=== PATIENT | female | born 1940 | race Caucasian/White ===

== ENCOUNTER 2024-08-18 08:58 | Emergency (ER) | payer MEDICARE, BC, SELFPAY ==
[2024-08-18 09:06] VITALS: BP 172/118; PULSE 72; RESP 16; TEMP 36.6; O2SAT 97; BMI 23.6
--- OUTSIDE RECORDS SUMMARY | 2024-08-18 09:11 | XMS_ITS | Clinical Summary ---
Author Organization [facility] Address [address] [place] [address] Care Team Providers Care Volleyball Player Name Role Phone Elsewhere, Pcp Primary Care Provider Unavailabl e Source Comments Patient records contain information from all sites at [facility]. For routine questions regarding patient records, call [phone] during business hours, M-F 8:00 AM - 5:00 PM Central Time. Record requests for emergency care only can be directed to [phone] at any time.[facility] Allergies Active Allergy Reactions Criticality Noted Date Comments Nitrofurantoin Other (see comments) Medium 11/13/2022 Fatigue and generalized weakness Medications * This document contains information received from the source organization and may not represent a complete record from that organization. aspirin [address] tablet Take 1 tablet by mouth daily. 5 Active gemfibrozil (LOPID) 600 mg tablet Take 1 tablet by mouth 2 (two) times a day. 5 Active ibuprofen (ADVIL,MOTRIN) 200 mg tablet Take 400 mg by mouth as needed. Pain 7 Active simvastatin (ZOCOR) 20 mg tablet Take 1 tablet by mouth daily. 5 Active triamcinolone (KENALOG) 0.1 % cream Apply topically 2 (two) times a day as needed. 7 Active metoprolol succinate (TOPROL-XL) 100 mg 24 hr tablet Take 100 mg by mouth daily. 8 Active warfarin (COUMADIN) 4 mg tablet Take by mouth. 4 mg everyday 0 Active omeprazole (PriLOSEC) [address] capsule Take 20 mg by mouth daily. 0 Active cyanocobalamin (VITAMIN B12) 1,000 mcg tablet Take 1,000 mcg by mouth daily. 1 Active losartan (COZAAR) 50 mg tablet Take 50 mg by mouth daily. 1 Active cranberry 500 mg capsule Take 1 capsule by mouth every other day. 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 Detachment Vitreous Posterior Left (Primary Dx); Intraocular Lens Implant Status Post 06/07/2024 Clinical Communication Department of Ophthalmology in [place], [place] [address] [place] [phone] Janiya Mills M.D. 06/05/2024 1:30 PM CDT Comprehensive Visit Department of Ophthalmology in [place], [place] [address] [place] [phone] Janiya Mills M.D. Detachment Vitreous Posterior Left (Primary Dx); Intraocular Lens Implant Status Post 06/05/2024 9:20 AM CDT - 06/05/2024 12:12 PM CDT Emergency [facility] Emergency Department [address] [place] [phone] Rosa Bernardo, EZEQUIEL, C.N.P., D.N.P., M.S.N. Blurred Vision (Primary Dx) Discharge Disposition: Home or Self Care from Last 3 Months Immunizations Immunization Administration Dates Next Due PCV13 08/20/2016 PPSV23 12/22/2006 Td Preservative Free (TENIVAC, DECAVAC) 03/22/19 04 Tdap 03/16/2014 influenza trivalent high dose (HD)(PF) 5 Family History Medical History Relation Name Comments Diabetes Brother Diabetes Sister Relation Name Status Comments Brother Sister Social History Tobacco Use Types Packs/Day Years Used Date Smoking Tobacco: Former Cigarettes Q uit: 10/12/1979 Smokeless Tobacco: Never Tobacco Cessation:Counseling Given: Not Answered Comments Unknown Sex and Gender Information Value Date Recorded Sex Assigned at Female 01/11/2018 10:16 AM SURTASS ANALYST Legal Sex Female 1:23 AM SURTASS ANALYST Gender Identity Female 01/11/2018 10:16 AM SURTASS ANALYST Sexual Orientation Straight 01/11/2018 10 :16 AM SURTASS ANALYST Last Filed Vital Signs Vital Sign Reading Time Taken Comments Blood Pressure 139/87 06/05/2024 12:00 PM CDT Pulse 66 06/05/2024 12:00 PM CDT Temperature 36.5 C (97.7 F) 06/05/2024 9:26 AM CDT Respiratory Rate 18 06/05/2024 12:00 PM CDT Oxygen Saturation 98% 06/05/2024 12:00 PM CDT Inhaled Oxygen Concentration - - Weight 73.2 kg (161 lb 6 oz) 06/05/2024 9:44 AM CDT Height 170.2 cm (5' 7 ) 06/05/2024 9:44 AM CDT Body Mass Index 25.28 06/05/2024 9:44 AM CDT Plan of Treatment Health Maintenance Due Date Last Done Comments RSV vaccine - (32-36 weeks) or 60+ years (1 - 1-dose 75+ series) 2016 COVID-19 Vaccine ( - season) 2023 05/08/2020, 04/17/2020 Depression Screening (Annual PHQ-2) 02/16/2024 Fall Risk Screen (Annual) 02/16/2024 DTaP,Tdap,and Td Vaccines (2 - Td or Tdap) 03/16/2024 03/16/2014, 03/22/2003 Influenza Vaccine (#1) 2024 , 12/25/2022, 12/18/2021, Additional history exists Office Visit for Blood Pressure Check / Re-check 03/20/2025 03/20/2024 Creatinine Level (Kidney Function Test) 06/09/2025 06/09/2024, 06/05/2024, 03/20/2024, Additional history exists Potassium Level 06/09/2025 06/09/2024, 04/2 02/2024, 12/24/2023, Additional history exists Sodium Level 06/09/2025 06/09/2024, 042 02/2024, 12/24/2023, Additional history exists Pneumococcal vaccine (50+ years) Completed 08/20/2016, 05/27/2015, 12/22/2006 Zoster Vaccines Completed 06/22/2023, 04/22/2023 IPV Vaccines Aged Out No longer eligi ble based on patient's age to complete this topic Medical Devices Implanted Type Area [employer] Attendant Device Identifier Shelf Expiration Date Model / Serial / Lot Graft Hemagard 16x8mm X 50cmknit Bif. - Dunn [id number] Implanted:Qty: 1 on 10/15/2016 Vascular Graft Other/Legacy - See Implant Description [employer] Description:Device Manufactu rer - [employer]. Body Location - Other. Vascular. Device Status Text - [id number]. Procedures Procedure Name Priority Date/Time Associated Diagnosis Comments CT HEAD NECK ANGIOGRAM WITH IV CONTRAST RAD - Semiurgent (Fast; most ED patients; some inpatients) 06/05/2024 10:[address] HEAD WITHOUT IV CONTRAST RAD - Semiurgent (Fast; most ED patients; some inpatients) 06/05/2024 10:29 AM CDT SEDIMENTATION RATE, B STAT 06/05/2024 9:56 AM CDT PROTHROMBIN TIME (PT), P STAT 06/05/2024 9:56 AM CDT C-REACTIVE PROTEIN (CRP), S/P STAT 06/05/2024 9:56 AM CDT CBC WITH DIFFERENTIAL, B STAT 06/05/2024 9:56 AM CDT BASIC METABOLIC PANEL, S/P STAT 06/05/2024 9:56 AM CDT ECG STAT 06/05/2024 9:54 AM CDT from Last 3 Months Results * CT Head without IV Contrast (06/05/2024 10:29 AM CDT) Anatomical Region Laterality Modality Head, Neuroradiology RST LOS , Neuroradiology ARZ LOS, Neuroradiology FLA LOS N/A Computed Tomography, Compute d Tomography 06/05/2024 10:2 0 AM CDT Impressions 06/05/2024 11:25 AM CDT 1. No acute intracranial findings. 2. Abnormal appearance of the proximal left internal and external carotid arteries, as described. Findings could potentially represent sequelae of prior dissection. However, no significant arterial stenosis is identified in the head or neck. Narrative 06/05/2024 11:25 AM CDT EXAM: CT HEAD WITHOUT IV CONTRAST, CT HEAD NECK ANGIOGRAM WITH IV CONTRAST Including 3D image post-processing with or without AI assistance. 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 CT HEAD: No intracranial hemorrhage, mass effect, or evidence of acute infarct. Mild leukoaraiosis. Paranasal sinuses are clear. Partially surgically excised right mastoid air cells, otherwise mastoid air cells are clear and well-aerated. CTA NECK: Conventional three vessel branch anatomy of the arch without significant narrowing of the great vessel origins. Thin, complex linear zones of hypoenhancement in the proximal left internal carotid artery and external carotid artery. For example, series 5, images [id number]. The etiology is indeterminate, but this could potentially represent sequelae of prior dissection. The bilateral common, external, and internal carotid arteries remain patent without significant stenosis. Scattered atherosclerotic calcifications. Codominant vertebral arteries. Both vertebral arteries are patent as well as the basilar artery. CTA HEAD: The major intracranial arteries are patent without stenosis or aneurysm. Patent anterior communicating and bilateral posterior communicating arteries. Early branching of a probable pericallosal artery, an anatomic variant. 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 Scattered spondylotic changes throughout the cervical spine. Unchanged right thyroid nodule. Procedure Note Alex Drew M.D. - 06/05/2024 EXAM: CT HEAD WITHOUT IV CONTRAST, CT HEAD NECK ANGIOGRAM WITH IVCONTRAST Including 3D image post-processing with or without AI assistance. COMPARISON: MR brain: 09/03/2022 FINDINGS: Postoperative changes of a translabyrinthine removal of a right acousticneuroma (performed 05/2002) followed by a stereotactic gamma knifetreatment for recurrence (performed 07/2014). CT HEAD: No intracranial hemorrhage, mass effect, or evidence of acute infarct.Mild leukoaraiosis. Paranasal sinuses are clear. Partially surgicallyexcised right mastoid air cells, otherwise mastoid air cells are clear andwell-aerated. CTA NECK: Conventional three vessel branch anatomy of the arch without significantnarrowing of the great vessel origins. Thin, complex linear zones ofhypoenhancement in the proximal left internal carotid artery and externalcarotid artery. For example, series 5, images [id number]. The etiology is indeterminate, but this could potentiallyrepresent sequelae of prior dissection. The bilateral common, external, and internal carotid arteries remainpatent without significant stenosis. Scattered atheroscleroticcalcifications. Codominant vertebral arteries. Both vertebral arteries are patent as wellas the basilar artery. CTA HEAD: The major intracranial arteries are patent without stenosis oraneurysm. Patent anterior communicating and bilateral posteriorcommunicating arteries. Early branching of a probable pericallosal artery,an anatomic variant. OTHER: Postsurgical changes from prior right translabyrinthine resectionof schwannoma from the right IAC. Scattered spondylotic changes throughoutthe cervical spine. Unchanged right thyroid nodule. IMPRESSION: 1. No acute intracranial findings. 2. Abnormal appearance of the proximal left internal and external carotidarteries, as described. Findings could potentially represent sequelae ofprior dissection. However, no significant arterial stenosis is identifiedin the head or neck. us Rosa Bernardo APRN, C.N.P., D.N.P., M.S.N. IMG CT PROCEDURES Final Result * CT Head Neck Angiogram with IV Contrast (06/05/2024 10:29 AM CDT) Anatomical Region Laterality Modality Head and Neck, Neuroradiolog y RST LOS, Neuroradiology KELSEY MEADOWS, Neuroradiology JANNA MEADOWS N/A Computed Tomography, Compute d Tomography 06/05/2024 10:3 1 AM CDT Impressions 06/05/2024 11:25 AM CDT 1. No acute intracranial findings. 2. Abnormal appearance of the proximal left internal and external carotid arteries, as described. Findings could potentially represent sequelae of prior dissection. However, no significant arterial stenosis is identified in the head or neck. Narrative 06/05/2024 11:25 AM CDT EXAM: CT HEAD WITHOUT IV CONTRAST, CT HEAD NECK ANGIOGRAM WITH IV CONTRAST Including 3D image post-processing with or without AI assistance. 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 CT HEAD: No intracranial hemorrhage, mass effect, or evidence of acute infarct. Mild leukoaraiosis. Paranasal sinuses are clear. Partially surgically excised right mastoid air cells, otherwise mastoid air cells are clear and well-aerated. CTA NECK: Conventional three vessel branch anatomy of the arch without significant narrowing of the great vessel origins. Thin, complex linear zones of hypoenhancement in the proximal left internal carotid artery and external carotid artery. For example, series 5, images [id number]. The etiology is indeterminate, but this could potentially represent sequelae of prior dissection. The bilateral common, external, and internal carotid arteries remain patent without significant stenosis. Scattered atherosclerotic calcifications. Codominant vertebral arteries. Both vertebral arteries are patent as well as the basilar artery. CTA HEAD: The major intracranial arteries are patent without stenosis or aneurysm. Patent anterior communicating and bilateral posterior communicating arteries. Early branching of a probable pericallosal artery, an anatomic variant. 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 Scattered spondylotic changes throughout the cervical spine. Unchanged right thyroid nodule. Procedure Note Alex Drew M.D. - 06/05/2024 EXAM: CT HEAD WITHOUT IV CONTRAST, CT HEAD NECK ANGIOGRAM WITH IVCONTRAST Including 3D image post-processing with or without AI assistance. COMPARISON: MR brain: 09/03/2022 FINDINGS: Postoperative changes of a translabyrinthine removal of a right acousticneuroma (performed 05/2002) followed by a stereotactic gamma knifetreatment for recurrence (performed 07/2014). CT HEAD: No intracranial hemorrhage, mass effect, or evidence of acute infarct.Mild leukoaraiosis. Paranasal sinuses are clear. Partially surgicallyexcised right mastoid air cells, otherwise mastoid air cells are clear andwell-aerated. CTA NECK: Conventional three vessel branch anatomy of the arch without significantnarrowing of the great vessel origins. Thin, complex linear zones ofhypoenhancement in the proximal left internal carotid artery and externalcarotid artery. For example, series 5, images [id number]. The etiology is indeterminate, but this could potentiallyrepresent sequelae of prior dissection. The bilateral common, external, and internal carotid arteries remainpatent without significant stenosis. Scattered atheroscleroticcalcifications. Codominant vertebral arteries. Both vertebral arteries are patent as wellas the basilar artery. CTA HEAD: The major intracranial arteries are patent without stenosis oraneurysm. Patent anterior communicating and bilateral posteriorcommunicating arteries. Early branching of a probable pericallosal artery,an anatomic variant. OTHER: Postsurgical changes from prior right translabyrinthine resectionof schwannoma from the right IAC. Scattered spondylotic changes throughoutthe cervical spine. Unchanged right thyroid nodule. IMPRESSION: 1. No acute intracranial findings. 2. Abnormal appearance of the proximal left internal and external carotidarteries, as described. Findings could potentially represent sequelae ofprior dissection. However, no significant arterial stenosis is identifiedin the head or neck. Rosa Bernardo APRN, C.N.P., D.N.P., M.S.N. IM CT PROCEDURES Final Result * Sedimentation Rate (06/05/2024 9:56 AM CDT) Sedimentation Rate, B 6 3 - 28 mm/h 06/05/2024 10:59 AM CDT DTL Blood (Blood, Venous) 06/05/2024 9:56 AM CDT 06/05/2024 10:13 AM CDT Romy Braden APRN.N.P., D.N.P., M.S.N. LAB BLOOD ADD-ON Final Result Performing Organization Address [facility] Co de Phone Number [facility] [address] DTL [facility] [address] [place] [address] * (ABNORMAL) Prothrombin Time (PT) (06/05/2024 9:56 AM CDT) Prothrombin Time, P 29.7(H) 9.4 - 12.5 sec 06/05/2024 10:23 AM CDT STMA INR 2.7 0.9 - 1.1 06/05/2024 10:23 AM CDT STMA Comment: ----ADDITIONAL INFORMATION---- Standard intensity warfarin therapeutic range: 2.0 to 3.0 High intensity warfarin therapeutic range: 2.5 to 3.5 Blood (Blood, Venous) 06/05/2024 9:56 AM CDT 06/05/2024 10:07 AM CDT Romy Braden APRN.N.P., D.N.P., M.S.N. LAB BLOOD ADD-ON Final Result Performing Organization Address City/[facility]/ZIP Co de Phone Number [facility] [address] [place] [address], [facility] STMA [facility] [address] [place] [address] * (ABNORMAL) CBC with Differential, Blood (06/05/2024 9:56 AM CDT) Hemoglobin 14.6 11.6 - 15.0 g/dL 06/05/2024 10:09 AM CDT STMA Hematocrit 46.2(H) 35.5 - 44.9 % 06/05/2024 10:09 AM CDT STMA Erythrocytes 5.43(H) 3.92 - 5.13 x10(12)/L 06/05/2024 10:09 AM CDT STMA MCV 85.1 78.2 - 97.9 fL 06/05/2024 10:09 AM CDT STMA RBC Distrib Width 14.3 12.2 - 16.1 % 06/05/2024 10:09 AM CDT STMA Platelet Count 220 157 - 371 x10(9)/L 06/05/2024 10:09 AM CDT STMA Leukocytes 4.9 3.4 - 9.6 x10(9)/L 06/05/2024 10:09 AM CDT STMA Neutrophils 2.66 1.56 - 6.45 x10(9)/L 06/05/2024 10:09 AM CDT DHPM Lymphocytes 1.15 0.95 - 3.07 x10(9)/L 06/05/2024 10:09 AM CDT STMA Monocytes 0.40 0.26 - 0.81 x10(9)/L 06/05/2024 10:09 AM CDT STMA Eosinophils 0.59(H) 0.03 - 0.48 x10(9)/L 06/05/2024 10:09 AM CDT STMA Basophils 0.05 0.01 - 0.08 x10(9)/L 06/05/2024 10:09 AM CDT STMA Blood (Blood, Venous) 06/05/2024 9:56 AM CDT 06/05/2024 10:07 AM CDT us Rosa Bernardo APRN, C.N.P., D.N.P., M.S.N. LAB BLOOD ADD-ON Final Result [facility] [address] [place] [address], [facility] STMA [facility] [address] [place] [address] [facility] [address] [place] [address] * CRP (C-Reactive Protein) (06/05/2024 9:56 AM CDT) C-Reactive Protein (CRP), S <3.0 <5.0 mg/L 06/05/2024 10:44 AM CDT DTL Blood (Blood, Venous) 06/05/2024 9:56 AM CDT 06/05/2024 10:21 AM CDT Rosa Bernardo APRN, C.N.P., D.N.P., M.S.N. LAB BLOOD ADD-ON Final Result [facility] [address] [place] [address], [facility] [address] [place] [address] * (ABNORMAL) Basic Metabolic Panel (06/05/2024 9:56 AM CDT) Pathologist [facility] Potassium, P 5.1 3.6 - 5.2 mmol/L 06/05/2024 10:24 AM CDT STMA Sodium, P 140 135 - 145 mmol/L 06/05/2024 10:24 AM CDT STMA Chloride, P 106 98 - 107 mmol/L 06/05/2024 10:24 AM CDT STMA Bicarbonate, P 22 22 - 29 mmol/L 06/05/2024 10:24 AM CDT STMA Anion Gap, P 12 7 - 15 06/05/2024 10:24 AM CDT STMA BUN (Blood Urea Nitrogen), P 26(H) 6 - 21 mg/dL 06/05/2024 10:24 AM CDT STMA Creatinine 0.93 0.59 - 1.04 mg/dL 06/05/2024 10:24 AM CDT STMA Estimated GFR (eGFR) 61 >=60 mL/min/BSA 06/05/2024 10:24 AM CDT STMA Comment: Estimated GFR calculated using the 2020 CKD_EPI creatinine equation. Calcium, Total, P 9.8 8.8 - 10.2 mg/dL 06/05/2024 10:24 AM CDT STMA Glucose, P 110 70 - 140 mg/dL 06/05/2024 10:24 AM CDT STMA Blood (Blood, Venous) 06/05/2024 9:56 AM CDT 06/05/2024 10:07 AM CDT Rosa Bernardo APRN, C.N.P., D.N.P., M.S.N. LAB BLOOD ADD-ON Final Result [facility] [address] [place] [address], [facility] STMA [facility] [address] [place] [address] * ECG 12 Lead (06/05/2024 9:54 AM CDT) Ventricular Rate ECG/Min 66 BPM MUSE QRSD Interval 72 ms MUSE QT Interval 402 ms MUSE QTC Interval 421 ms MUSE R Cummings -29 degrees MUSE T Wave Cummings 78 degrees MUSE 06/05/2024 9:54 AM CDT 06/05/2024 10:07 AM CDT Impressions MUSE - 06/05/2024 10:07 AM CDT Poor data quality, interpretation may be adversely affected Atrial fibrillation Cannot rule out Anteroseptal infarct Nonspecific ST and T wave abnormality When compared with ECG of 21-Oct-2016 08:14, Vent. rate has decreased by 53 bpm Nonspecific T wave abnormality no longer evident in Anterior leads Inverted T waves have replaced nonspecific T wave abnormality in Lateral leads Reviewed by ROBERT Jaeger Narrative Procedure Note Rashad Bailey M.D., Ph.D. - 06/05/2024 IMPRESSION: Poor data quality, interpretation may be adversely affected Atrial fibrillation Cannot rule out Anteroseptal infarct Nonspecific ST and T wave abnormality When compared with ECG of 21-Oct-2016 08:14, Vent. rate has decreased by 53 bpm Nonspecific T wave abnormality no longer evident in Anterior leads Inverted T waves have replaced nonspecific T wave abnormality in Lateralleads Reviewed by ROBERT Jaeger Rosa Bernardo APRN, C.N.P., D.N.P., M.S.N. ECG ORDERABLES Final Result MUSE NA from Last 3 Months Insurance MEDICARE [facility] Care Teams Volleyball Player Relationship Specialty Start Date End Date Elsewhere, Pcp PCP - General Internal Medicine 06/05/24
--- OUTSIDE RECORDS SUMMARY | 2024-08-18 09:11 | XMS_ITS | Encounter Summary ---
Author Organization [facility] er Address [address] [place] [address] Care Team Providers Care Certified Pathology Assistant Name Role Phone Corazon Maldonado MD Primary Care Provider [phone] Reason for Visit * Reason Comments Med Refill Encounter Details Date Type Department Care Team (Late st Contact Info) Description 09/20/2019 Refill Family Medicine 4th Floor [address] [place] [address] Martha Mark MD Essential hypertension (Primary Dx); Mixed hyperlipidemia Social History Tobacco Use Types Packs/Day Years Used Date Smoking Tobacco: Never Smokeless Tobacco: Never Alcohol Use Standard Drinks/Week Comments Not Currently 0 (1 standard drink = 0.6 oz pur e alcohol) Humiliation, Afraid, Rape, and Kick questionnair e Answer Date Recorded Fear of Current or Ex-Partner No Emotionally Abused No 12/20/2018 Physically Abused No 12/20/2018 Sexually Abused No 12/20/2018 Social Connection and Isolat ion Panel [NHANES] Answer Date Recorded Frequency of Communication w ith Friends and Family More than three times a week 12/20/2018 Frequency of Social Gatherin gs with Friends and Family Three times a week 12/20/2018 Attends Congregational Services More than 4 times per year 12/20/2018 Active Member of Clubs or Organizations No 12/20/2018 Attends Club or Organization Meetings Never 12/20/2018 Marital Status 12/20/2018 Overall Financial Resource Strain (CARDIA) Answe r Date Recorded Difficulty of Paying Living Expenses Not hard at all 12/20/2018 PHQ-2 Answer Date Recorded PHQ-2 Score 0 11/21/2018 [facility] [place] of Occupat ional Health - Occupational Stress Questionnaire Answer Date Recorded Feeling of Stress Not at all 12/20/2018 Exercise Vital Sign Answer Date Recorde d Days of Exercise per Week 0 days 2018 Minutes of Exercise per Session 0 min 12/20/2018 Hunger Vital Sign Answer Date Recorded Worried About Running Out of Food in the Last Ye ar Never true 12/20/2018 Ran Out of Food in the Last Year Never true 12/20/2018 PRAPARE - Transportation Answer Date Re corded Lack of Transportation (Medical) No 12/20/2018 Lack of Transportation (Non-Medical) No 12/20/2018 Comments No Sex and Gender Information Value Date Recorded Sex Assigned at Not on file Legal Sex Female 8:12 PM CDT Gender Identity Not on file Sexual Orientation Not on file Occupation Industry Job Start Date Job End Date retired Not on file Not on file Not on file documented as of this encounter Miscellaneous Notes * Telephone Encounter - Ave Jaquez MA - 09/27/2019 8:56 AM CDT Called patient back, she is okay completing labs ordered and to come in for med review visit only. Schedule on 11/06/19 for lab and on 11/21/19 for med review visit * Telephone Encounter - Tera Barboza - 09/26/2019 2:52 PM CDT PT has declined a Physical stating that her medicare insurance will not cover preventative appointments and she had to pay out of pocket for her last physical. Is wary about scheduling further appointments, would like to know if she'll be charged out of pocket for an office/CP, please advise. * Telephone Encounter - Kristi Manzo MA - 09/26/2019 1:36 PM CDT Patient will be due for a CP in December with fasting labs. Please assist patient in scheduling. Labs ordered. Thank you * Telephone Encounter - Zayra Londono MA - 09/25/2019 8:18 AM CDT Last visit in provider department: 08/17/2019 Telemed Visit Last visit requested medication was discussed: 12/20/2018 [facility] Upcoming appointment with provider: No appt scheduled Last Rx: Simvastatin 20mg #90 +4 refills 09/14/2018 Gemfibrozil 600mg #180 +4 refills 09/14/2018 Requested Prescriptions Pending Prescriptions Disp Refills ??? simvastatin (ZOCOR) 20 MG tablet [Pharmacy Med Name: SIMVASTATIN 20 MG Tablet] 90 tablet 4 Sig: TAKE 1 TABLET EVERY EVENING ??? gemfibrozil (LOPID) 600 MG tablet [Pharmacy Med Name: GEMFIBROZIL 600 MG Tablet] 180 tablet 4 Sig: TAKE 1 TABLET TWICE DAILY Labs: Component Latest Ref Rng & Units 12/13/2018 Cholesterol 0 - 199 mg/dL 160 Triglycerides 0 - 149 mg/dL 91 HDL 40 - 60 mg/dL 48 LDL Calculated 0 - 99 mg/dL 94 Fasting? Yes Vitals: BP Readings from Last 2 Encounters: 08/14/19 (!) 158/100 07/17/19 174/83 documented in this encounter Plan of Treatment Upcoming Encounters Date Type Department Care Team (Late st Contact Info) Description 01/05/2025 8:20 AM SALES AND PRODUCTION MANAGER Office Visit Family Medicine 4th Floor [address] [place] [address] [phone] Corazon Maldonado MD [address] [place], [place] [phone] documented as of this encounter Results * (ABNORMAL) Basic metabolic panel (12/18/2019 8:01 AM SALES AND PRODUCTION MANAGER) Sodium 142 135 - 145 mEq/L 12/18/2019 10:[address] [facility] Potassium 5.2(H) 3.5 - 5.1 mEq/L 12/18/2019 10:[address] [facility] Chloride 106 98 - 107 mEq/L 12/18/2019 10:[address] [facility] CO2 29 22 - 29 mmol/L 12/18/2019 10:[address] [facility] Creatinine 0.8 0.4 - 1.2 mg/dL 12/18/2019 10:[address] [facility] BUN 16 5 - 25 mg/dL 12/18/2019 10:[address] [facility] Glucose 133(H) 70 - 100 mg/dL 12/18/2019 10:[address] [facility] Calcium, Total,S 10.0 8.4 - 10.2 mg/dL 12/18/2019 10:[address] [facility] Fasting? Yes 12/18/2019 8:[address] [facility] Blood 12/18/2019 8:01 AM SALES AND PRODUCTION MANAGER 12/18/2019 9:44 AM [facility] us Martha Mcdowell MD LAB BLOOD ORDERABLES Final Result [facility] [address] [place] [phone] * (ABNORMAL) Lipid panel (12/18/2019 8:01 AM [facility]) Cholesterol 174 0 - 199 mg/dL 12/18/2019 10:[address] [facility] Comment: Recommended by National Cholesterol Education Program (ATP III) -------- Cholesterol Ranges -------- <200 Desirable 200-239 Borderline high >=240 High Triglycerides 101 0 - 149 mg/dL 12/18/2019 10:[address] [facility] Comment: -------- TRIG Ranges -------- <150 Normal 150-199 Borderline high 200-499 High >=500 Very high HDL 50 40 - 250 mg/dL 12/18/2019 10:[address] [facility] Comment: -------- HDL Ranges -------- <40 Low 40-59 Normal >=60 Optimal LDL Calculated 104(H) 0 - 99 mg/dL 12/18/2019 10:16 AM SALES AND PRODUCTION MANAGER [facility] Comment: -------- LDL Ranges -------- <100 Optimal 100-129 Near optimal/above optimal 130-159 Borderline high 160-189 High >=190 Very high Blood 12/18/2019 8:01 AM SALES AND PRODUCTION MANAGER 12/18/2019 9:44 AM SALES AND PRODUCTION MANAGER us Martha Mcdowell MD LAB BLOOD ORDERABLES Final Result [facility] [address] [place] [address] documented in this encounter Visit Diagnoses Diagnosis Essential hypertension- Primary Unspecified essential hypertension Mixed hyperlipidemia documented in this encounter Additional Health Concerns Infection Onset Date Last Indicated Resolved Time COVID-19 Rule Out 01/31/2022 01/31/2022 01/31/2022 8:08 PM SALES AND PRODUCTION MANAGER COVID-19 Confirmed 01/31/2022 01/31/2022 8:17 PM CDT COVID-19 Rule Out 11/02/2022 11/02/2022 11/02/2022 9:58 AM CDT documented as of this encounter Care Teams Certified Pathology Assistant Relationship Specialty Start Date End Date Corazon Maldonado MD [address] [facility] [place] [address] PCP - General 05/16/21 [facility] [place] Registered Nurse 10/29/16 documented as of this encounter
--- OUTSIDE RECORDS SUMMARY | 2024-08-18 09:11 | XMS_ITS | Encounter Summary ---
Author Organization [facility] er Address [address] [place] [address] Care Team Providers Care Facility Service Associate Name Role Phone Corazon Maldonado MD Primary Care Provider [phone] Encounter Details Date Type Department Care Team (Late st Contact Info) Description 04/01/2020 Telephone Family Medicine 4th Floor [address] [place] [address] Martha Mark MD Social History Tobacco Use Types Packs/Day Years Used Date Smoking Tobacco: Former Cigarettes 1982 Smokeless Tobacco: Never Alcohol Use Standard Drinks/Week Comments Not Currently 0 (1 standard drink = 0.6 oz pur e alcohol) Humiliation, Afraid, Rape, and Kick questionnair e Answer Date Recorded Within the last year, have y ou been afraid of your partner or ex-partner? No 04/01/2020 Within the last year, have y ou been humiliated or emotionally abused in other ways by your partner or ex-partner? No Within the last year, have y ou been kicked, hit, slapped, or otherwise physically hurt by your partner or ex-partner? No 04/01/2020 Within the last year, have y ou been raped or forced to have any kind of sexual activity by your partner or ex-partner? No 04/01/2020 Social Connection and Isolat ion Panel [NHANES] Answer Date Recorded In a typical week, how many times do you talk on the phone with family, friends, or neighbors? More than three times a week 04/01/2020 How often do you get togethe r with friends or relatives? Three times a week 04/01/2020 How often do you attend chur ch or sikhism services? More than 4 times per year 04/01/2020 Do you belong to any clubs o r organizations such as nondenominational groups, unions, fraternal or athletic groups, or school groups? No 04/01/2020 How often do you attend meet ings of the clubs or organizations you belong to? Never 04/01/2020 Are you , , di vorced, , never , or living with a partner? 04/01/2020 Overall Financial Resource Strain (CARDIA) Answe r Date Recorded How hard is it for you to pa y for the very basics like food, housing, medical care, and heating? Not hard at all 04/01/2020 PHQ-2 Answer Date Recorded PHQ-9 Total Score 0 04/01/2020 [facility] of Occupat ional Health - Occupational Stress Questionnaire Answer Date Recorded Do you feel stress - tense, restless, nervous, or anxious, or unable to sleep at night because your mind is troubled all the time - these days? Not at all 04/01/2020 Exercise Vital Sign Answer Date Recorde d On average, how many days pe r week do you engage in moderate to strenuous exercise (like a brisk walk)? 0 days 04/01/2020 On average, how many minutes do you engage in exercise at this level? 0 min 04/01/2020 Hunger Vital Sign Answer Date Recorded Within the past 12 months, y ou worried that your food would run out before you got the money to buy more. Never true 04/01/19 21 Within the past 12 months, t he food you bought just didn't last and you didn't have money to get more. Never true 04/01/2020 PRAPARE - Transportation Answer Date Re corded In the past 12 months, has l ack of transportation kept you from medical appointments or from getting medications? No 03/18 In the past 12 months, has l ack of transportation kept you from meetings, work, or from getting things needed for daily living? No 04/01/2020 Education Answer Date Recorded What is the highest level of school you have completed or the highest degree you have received? High school graduate 12/29/2019 Comments No Sex and Gender Information Value Date Recorded Sex Assigned at Not on file Legal Sex Female 8:12 PM CDT Gender Identity Not on file Sexual Orientation Not on file Occupation Industry Job Start Date Job End Date retired Not on file Not on file Not on file documented as of this encounter Plan of Treatment Upcoming Encounters Date Type Department Care Team (Late st Contact Info) Description 01/05/2025 8:20 AM UNIX ADMINISTRATOR Office Visit Family Medicine 4th Floor [address] [place] [phone] Corazon Maldonado MD 210 [place] [address] documented as of this encounter Visit Diagnoses Not on filedocumented in this encounter Additional Health Concerns Infection Onset Date Last Indicated Resolved Time COVID-19 Rule Out 01/31/2022 01/31/2022 01/31/2022 8:08 PM UNIX ADMINISTRATOR COVID-19 Confirmed 01/31/2022 01/31/2022 8:17 PM CDT COVID-19 Rule Out 11/02/2022 11/02/2022 11/02/2022 9:58 AM CDT documented as of this encounter Care Teams Facility Service Associate Relationship Specialty Start Date End Date Corazon Maldonado MD [address] [place] [phone] PCP - General 05/16/21 [facility] [place] 10/29/16 documented as of this encounter
--- OUTSIDE RECORDS SUMMARY | 2024-08-18 09:11 | XMS_ITS | Encounter Summary ---
Author Organization [facility] er Address [address] [place] [address] Care Team Providers Care Silhouette Artist Name Role Phone Corazon Maldonado MD Primary Care Provider Reason for Referral * Consultation (Routine) - Authorized Specialty Diagnoses / Procedures Referred By Contac t Referred To Contact Cardiology Diagnoses Atrial enlargement, bilateral Corazon Maldonado MD [address] [place] [address] Phone: tel: fax: CARDIOLOGY [address] [place] [address] Phone: tel: fax: Referral ID Status Reason Start Date Expiration Date Visits Requested Visits Authorized [id number] Authorized Specialty Services Required 07/18/2024 07/18/2025 1 1 Scheduling Instructions Please call the Theatrical Agent desk at [phone] ext. [phone] to schedule an appointment. Encounter Details Date Type Department Care Team (Late st Contact Info) Description 07/06/2024 Results Follow-Up Family Medicine 4th Floor [address] [place] [address] Corazon Maldonado MD [address] [place] [address] Atrial enlargement, bilateral (Primary Dx) Social History Tobacco Use Types Packs/Day Years Used Date Smoking Tobacco: Former Cigarettes 1982 Passive Smoke Exposure: Past Smokeless Tobacco: Never Alcohol Use Standard Drinks/Week Comments Not Currently 0 (1 standard drink = 0.6 oz pur e alcohol) B1300 Health Literacy Answer Date Recor ded How often do you need to hav e someone help you when you read instructions, pamphlets, or other written material from your doctor or pharmacy? Never 12/31/2023 [facility] Utilities Answer Date Recorded In the past 12 months has [facility] [employer]s, gas, oil, or water [employer] threatened to shut off services in your home? No 12/31/2023 Humiliation, Afraid, Rape, and Kick questionnair e Answer Date Recorded Within the last year, have y ou been afraid of your partner or ex-partner? No 12/31/2023 Within the last year, have y ou been humiliated or emotionally abused in other ways by your partner or ex-partner? No Within the last year, have y ou been kicked, hit, slapped, or otherwise physically hurt by your partner or ex-partner? No 12/31/2023 Within the last year, have y ou been raped or forced to have any kind of sexual activity by your partner or ex-partner? No 12/31/2023 Social Connection and Isolat ion Panel [NHANES] Answer Date Recorded In a typical week, how many times do you talk on the phone with family, friends, or neighbors? More than three times a week 12/31/2023 How often do you get togethe r with friends or relatives? Twice a week 12/31/2023 How often do you attend chur or restoration services? More than 4 times per year 12/31/2023 Do you belong to any clubs o r organizations such as quaker groups, unions, fraternal or athletic groups, or school groups? No 12/31/2023 How often do you attend meet ings of the clubs or organizations you belong to? Never 12/31/2023 Are you , , di vorced, , never , or living with a partner? 12/31/2023 AUDIT-C Answer Date Recorded Q1: How often do you have a drink containing alcohol? Never 12/31/2023 Q2: How many drinks containi ng alcohol do you have on a typical day when you are drinking? Patient does not drink Q3: How often do you have si x or more drinks on one occasion? Never 12/31/2023 Overall Financial Resource Strain (CARDIA) Answe r Date Recorded How hard is it for you to pa y for the very basics like food, housing, medical care, and heating? Not hard at all 12/31/2023 PHQ-2 Answer Date Recorded PHQ-9 Total Score 0 07/05/2024 [facility] of Occupat ional Health - Occupational Stress Questionnaire Answer Date Recorded Do you feel stress - tense, restless, nervous, or anxious, or unable to sleep at night because your mind is troubled all the time - these days? Not at all 12/31/2023 Exercise Vital Sign Answer Date Recorde d On average, how many days pe r week do you engage in moderate to strenuous exercise (like a brisk walk)? 4 days 12/31/2023 On average, how many minutes do you engage in exercise at this level? 40 min 12/31/2023 Hunger Vital Sign Answer Date Recorded Within the past 12 months, y ou worried that your food would run out before you got the money to buy more. Never true 12/31/19 24 Within the past 12 months, t he food you bought just didn't last and you didn't have money to get more. Never true 12/31/2023 PRAPARE - Transportation Answer Date Re corded In the past 12 months, has l ack of transportation kept you from medical appointments or from getting medications? No 12/16 In the past 12 months, has l ack of transportation kept you from meetings, work, or from getting things needed for daily living? No 12/31/2023 Housing Stability Vital Sign Answer Andrzej e Recorded In the last 12 months, was t here a time when you were not able to pay the mortgage or rent on time? No 12/25/2022 In the last 12 months, how many places have you lived? 1 12/25/2022 In the last 12 months, was t here a time when you did not have a steady place to sleep or slept in a fdc (including now)? No 12/25/2022 Housing Stability Vital Sign Answer Andrzej e Recorded In the last 12 months, was t here a time when you were not able to pay the mortgage or rent on time? No 12/31/2023 In the past 12 months, how m any times have you moved where you were living? 0 12/31/2023 At any time in the past 12 [facility], were you homeless or living in a fdc (including now)? No 12/31/2023 Interpersonal Safety Questionnaire Answer Date Recorded How often does anyone, carmen terrazas family and friends, physically hurt you? Never 12/31/2023 How often does anyone, carmen terrazas family and friends, insult or talk down to you? Never 12/31/2023 How often does anyone, carmen terrazas family and friends, threaten you with harm? Never 12/31/2023 How often does anyone, carmen terrazas family and friends, threaten you with harm? Never 12/31/2023 Education Answer Date Recorded What is the [...] st Contact Info) Description 01/05/2025 8:20 AM HIGH RIGGER Office Visit Family Medicine 4th Floor [address] [place] [phone] Corazon Maldonado MD [address] [place], [place] [address] Scheduled Referrals Name Type Priority Associated Diagnoses Order Schedule Ambulatory referral to Cardiology Outpatient Referral Routine Atrial enlargement, bilateral Ordered: 07/18/2024 documented as of this encounter Visit Diagnoses Diagnosis Atrial enlargement, bilateral- Primary documented in this encounter Care Teams Silhouette Artist Relationship Specialty Start Date End Date Corazon Maldonado MD [address] [place] [phone] PCP - General 05/16/21 [facility] Registered Nurse 10/29/16 documented as of this encounter
--- OUTSIDE RECORDS SUMMARY | 2024-08-18 09:11 | XMS_ITS | Encounter Summary ---
Author Organization [facility] er Address [address] [place] [address] Care Team Providers Care Informatica Mdm Architect Name Role Phone Corazon Maldonado MD Primary Care Provider [phone] Reason for Visit * Reason Comments Med Refill Encounter Details Date Type Department Care Team (Late st Contact Info) Description 07/14/2023 Refill Family Medicine 4th Floor [address] [place] [address] Corazon Maldonado MD [address] [place] [address] Essential hypertension Social History Tobacco Use Types Packs/Day Years Used Date Smoking Tobacco: Former Cigarettes 1 06 03 963 1982 Smokeless Tobacco: Never Alcohol Use Standard Drinks/Week Comments Not Currently 0 (1 standard drink = 0.6 oz pur e alcohol) Humiliation, Afraid, Rape, and Kick questionnair e Answer Date Recorded Within the last year, have y ou been afraid of your partner or ex-partner? Patient declined 12/25/2022 Within the last year, have y ou been humiliated or emotionally abused in other ways by your partner or ex-partner? Patient declined 12/25/2022 Within the last year, have y ou been kicked, hit, slapped, or otherwise physically hurt by your partner or ex-partner? Patient declined 12/25/2022 Within the last year, have y ou been raped or forced to have any kind of sexual activity by your partner or ex-partner? Patient declined 12/25/2022 Social Connection and Isolat ion Panel [NHANES] Answer Date Recorded In a typical week, how many times do you talk on the phone with family, friends, or neighbors? More than three times a week 12/25/2022 How often do you get togethe r with friends or relatives? Once a week 12/25/2022 How often do you attend chur or voodoo services? More than 4 times per year 12/25/2022 Do you belong to any clubs o r organizations such as buddhist groups, unions, fraternal or athletic groups, or school groups? No 12/25/2022 How often do you attend meet ings of the clubs or organizations you belong to? Never 12/25/2022 Are you , , di vorced, , never , or living with a partner? 12/25/2022 AUDIT-C Answer Date Recorded Q1: How often do you have a drink containing alcohol? Never 12/25/2022 Q2: How many drinks containi ng alcohol do you have on a typical day when you are drinking? Patient does not drink Q3: How often do you have si x or more drinks on one occasion? Never 12/25/2022 Overall Financial Resource Strain (CARDIA) Answe r Date Recorded How hard is it for you to pa y for the very basics like food, housing, medical care, and heating? Not hard at all 12/25/2022 PHQ-2 Answer Date Recorded PHQ-9 Total Score 0 07/05/2023 [facility] Occup[facility] ional Health - Occupational Stress Questionnaire Answer Date Recorded Do you feel stress - tense, restless, nervous, or anxious, or unable to sleep at night because your mind is troubled all the time - these days? Not at all 12/25/2022 Exercise Vital Sign Answer Date Recorde d On average, how many days pe r week do you engage in moderate to strenuous exercise (like a brisk walk)? 4 days 12/25/2022 On average, how many minutes do you engage in exercise at this level? 40 min 12/25/2022 Hunger Vital Sign Answer Date Recorded Within the past 12 months, y ou worried that your food would run out before you got the money to buy more. Never true 12/26/19 23 Within the past 12 months, t he food you bought just didn't last and you didn't have money to get more. Never true 12/25/2022 PRAPARE - Transportation Answer Date Re corded In the past 12 months, has l ack of transportation kept you from medical appointments or from getting medications? No 12/16 In the past 12 months, has l ack of transportation kept you from meetings, work, or from getting things needed for daily living? No 12/25/2022 Housing Stability Vital Sign Answer [...] place to sleep or slept in a snf (including now)? No 12/25/2022 Education Answer Date Recorded What is the [...] encounter Miscellaneous Notes * Telephone Encounter - Christy Modi MA - 07/16/2023 10:58 AM CDT Duplicate request; done on 06/24/23 documented in this encounter Plan of Treatment Upcoming Encounters Date Type Department Care Team (Late st Contact Info) Description 01/05/2025 8:20 AM RATE MARKER Office Visit Family Medicine 4th Floor [address] [place] [address] Corazon Maldonado MD 210 [facility] [place] [address] documented as of this encounter Visit Diagnoses Diagnosis Essential hypertension Unspecified essential hypertension documented in this encounter Care Teams Informatica Mdm Architect Relationship Specialty Start Date End Date Corazon Maldonado MD [address] [place] [id number] PCP - General 05/16/21 Anticoagulation Clinic [facility] Registered Nurse 10/29/16 documented as of this encounter
--- OUTSIDE RECORDS SUMMARY | 2024-08-18 09:11 | XMS_ITS | Encounter Summary ---
Author Organization [facility] er Address [address] [place] [address] Care Team Providers Care Diesel Engine Inspector Name Role Phone Corazon Maldonado MD Primary Care Provider [phone] Reason for Visit * Reason Comments Med Refill Encounter Details Date Type Department Care Team (Late st Contact Info) Description 11/04/2020 Refill Anticoagulation [address] [place] [address] Sylvia Mcdonald, EZEQUIEL, EXPLOSIVE SPECIALIST [address] [place] [address] Chronic atrial fibrillation (HCC) Social History Tobacco Use Types Packs/Day Years [...] often do you attend chur ch or bahai services? More than 4 times per year 04/01/2020 Do you belong to any clubs o r organizations such as latter day groups, unions, fraternal or athletic groups, or [...] Answer Date Recorded PHQ-9 Total Score 0 09/30/2020 [facility] of Occupat ional Health - Occupational [...] encounter Miscellaneous Notes * Telephone Encounter - Zayra Londono MA - 11/06/2020 8:15 AM CDT Last visit requested medication was discussed: Upcoming appointment with provider: 04/07/2021 Last Rx: #110 +3 refills 02/12/2020 Requested Prescriptions Pending Prescriptions Disp Refills ??? warfarin (COUMADIN) 4 MG tablet [Pharmacy Med Name: WARFARIN SODIUM 4 MG Tablet] 110 tablet 3 Sig: TAKE 1/2 TABLET ON WEDNESDAY AND WEDNESDAY AND TAKE 1 TABLET ALL OTHER DAYS AND DIRECTED BY ANTICOAGULATION CLINIC Labs: Component Latest Ref Rng & Units 10/08/2020 Protime 10.6 - 12.4 seconds 22.5 (H) INR 2.0 Future labs ordered Vitals: BP Readings from Last 2 Encounters: 09/30/20 138/86 09/18/20 140/87 documented in this encounter Plan of Treatment Upcoming Encounters Date Type Department Care Team (Late st Contact Info) Description 01/05/2025 8:20 AM FORENSIC PATHOLOGIST Office Visit Family Medicine 4th Floor [address] [place], [place] [address] Corazon Maldonado MD 210 [facility] [place], [place] [id number] documented as of this encounter Visit Diagnoses Diagnosis Chronic atrial fibrillation (HCC) Atrial fibrillation documented in this encounter Additional Health Concerns Infection Onset Date Last Indicated Resolved Time COVID-19 Rule Out 01/31/2022 01/31/2022 01/31/2022 8:08 PM FORENSIC PATHOLOGIST COVID-19 Confirmed 01/31/2022 01/31/2022 8:17 PM CDT COVID-19 Rule Out 11/02/2022 11/02/2022 11/02/2022 9:58 AM CDT documented as of this encounter Care Teams Diesel Engine Inspector Relationship Specialty Start Date End Date Corazon Maldonado MD [address] [place] [address] PCP - General 05/16/21 Anticoagulation Clinic [facility] Registered Nurse 10/29/16 documented as of this encounter
--- OUTSIDE RECORDS SUMMARY | 2024-08-18 09:11 | XMS_ITS | Clinical Summary ---
Author Organization [facility] Address [address] [place] [address] Care Team Providers Care Hand Quilter Name Role Phone Establish, Need To MD Primary Care Provider Source Comments If you need additional information that is not available on Care Everywhere, please contact our Medical Records Department during business hours (Wednesday - Wednesday, 8 am - 5 pm) at . During nonbusiness hours, please contact our Trauma and Emergency Center at [facility] Allergies No known active allergies Medications * Medications may not be up to date as of this document. Always verify current medications with the patient. aspirin EC 81 mg enteric coated tablet Take 81 mg by mouth daily Active gemfibrozil (LOPID-EQUIVALE NT) 600 mg tablet Take 600 mg by mouth 2 times daily Active metoprolol succinate 100 mg CSpX Take by mouth every evening Active simvastatin (ZOCOR) 20 mg tablet Take 20 mg by mouth every evening Active triamcinolone acetonide (KENALOG) 0.1 % cream Apply 2 times daily Active warfarin 2 mg tablet Take by mouth every evening as directed by dosing instructions Active omeprazole (PRILOSEC) 20 mg delayed release capsule Take 20 mg by mouth every evening Active Active Problems Problem Noted Date Diagnosed Date Esotropia, 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, 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 Surgical History Surgery Date Site/Laterality Comments RECESSION RESECTION STRABISMUS 03/31/2019 Eye/Bilateral REPAIR STRABISMUS performed by Martín Chu MD at [facility] OR STRABISMUS SURGERY RE 03/31/2019 STRABISMUS SURGERY LE 03/31/2019 Social History Tobacco Use Types Packs/Day Years Used Date Smoking Tobacco: Former Cigarettes Q uit: 03/29/1979 Smokeless Tobacco: Never Comments Unknown Sex and Gender Information Value Date Recorded Sex Assigned at Not on file Legal Sex Female 1:39 PM SOCIAL SCIENCE INSTRUCTOR Gender Identity Not on file Sexual Orientation Not on file Obstetrics History Last Filed Vital Signs Vital Sign Reading Time Taken Comments Blood Pressure 170/84 03/31/2019 12:27 PM SOCIAL SCIENCE INSTRUCTOR Pulse - - Temperature 36.6 C (97.9 F) 03/31/2019 11:48 AM SOCIAL SCIENCE INSTRUCTOR Respiratory Rate 20 03/31/2019 12:27 PM SOCIAL SCIENCE INSTRUCTOR Oxygen Saturation 97% 03/31/2019 12:27 PM SOCIAL SCIENCE INSTRUCTOR Inhaled Oxygen Concentration - - Weight - - Height 172.7 cm (5' 8 ) 03/31/2019 8:43 AM SOCIAL SCIENCE INSTRUCTOR Body Mass Index - - Plan of Treatment Health Maintenance Due Date Last Done Comments DEPRESSION/ANXIETY PHQ4 1953 LIPID SCREEN 10/27/1959 WELLNESS VISIT 10/27/1959 PERTUSSIS 1960 DIABETES SCREENING 1986 SHINGLES VACCINE (SHINGRIX) (1 of 2) 10/27/1991 BONE DENSITY 2006 RSV Vaccines (1 - 1-dose 75+ series) 2016 COVID-19 Vaccine ( season) 2023 DTaP/Tdap/Td Vaccine (2 - Td or Tdap) 03/16/2024 03/16/2014, 03/22/2003 Influenza Vaccine (Season Ended) 2024 12/20/2018, 12/09/2017, 12/18/2014, Additional history exists Pneumococcal Vaccine: 50+ Years Completed 08/20/2016, 05/27/2015, 12/22/2006 HPV Vaccine Aged Out No longer eligi ble based on patient's age to complete this topic Hepatitis B Vaccine Aged Out No longe r eligible based on patient's age to complete this topic POLIO (IPV) Vaccine Aged Out No longe r eligible based on patient's age to complete this topic Insurance MEDICARE [facility] MEDICARE SUPPLEMENT Advance Directives For more information, please contact: [phone] [id number] * Full Code (Latest Code Status on File) Date Activated Date Inactivated Comments 03/31/2019 8:40 AM 03/31/2019 5:06 PM Care Teams Hand Quilter Relationship Specialty Start Date End Date Establish, Need To, [address] [facility] [place] [address] PCP - General MONUMENT SETTER 01/30/19
--- OUTSIDE RECORDS SUMMARY | 2024-08-18 09:11 | XMS_ITS | Encounter Summary ---
Author Organization [facility] er Address [address] [place] [address] Care Team Providers Care Segmental Paver Installer Name Role Phone Corazon Maldonado MD Primary Care Provider [phone] Reason for Visit * Reason Comments Med Refill Encounter Details Date Type Department Care Team (Late st Contact Info) Description 05/01/2019 Refill Family Medicine 4th Floor [address] [place] [address] Martha Mark MD Chronic atrial fibrillation (HCC) Social History Tobacco [...] Family Three times a week 12/20/2018 Attends Holiness Services More than 4 times per year 12/20/2018 Active Member of Clubs or Organizations No 12/20/2018 Attends Club or Organization Meetings Never 12/20/2018 Marital Status 12/20/2018 Overall Financial Resource Strain (CARDIA) Answe r Date Recorded Difficulty of Paying Living Expenses Not hard at all 12/20/2018 PHQ-2 Answer Date Recorded PHQ-2 Score 0 11/21/2018 [facility] of Occupat ional Health - Occupational Stress [...] encounter Miscellaneous Notes * Telephone Encounter - Dayami Kerr MA - 05/04/2019 9:28 AM CDT Last visit in Provider Department: 12/20/2018ROBIN Upcoming appointment with Provider: none Last Rx: 06/29/18, #78, 3 refills Requested Prescriptions Pending Prescriptions Disp Refills ??? warfarin (COUMADIN) 4 MG tablet [Pharmacy Med Name: WARFARIN SODIUM 4 MG Tablet] 78 tablet 3 Sig: TAKE DIRECTED EVERY EVENING (1/2 TABLET ON WEDNESDAYS AND FRIDAYS AND 1 TABLET THE REST OF THE WEEK) Labs: Component Latest Ref Rng & Units 04/24/2019 Protime 10.6 - 12.9 seconds 38.4 (H) INR 3.2 documented in this encounter Plan of Treatment Upcoming Encounters Date Type Department Care Team (Late st Contact Info) Description 01/05/2025 8:20 AM METAL ORGAN PIPE MAKER Office Visit Family Medicine 4th Floor [address] [place] [address] Corazon Maldonado MD [address] [place] [address] documented as of this encounter Visit Diagnoses Diagnosis Chronic atrial fibrillation (HCC) Atrial fibrillation documented in this encounter Additional Health Concerns Infection Onset Date Last Indicated Resolved Time COVID-19 Rule Out 01/31/2022 01/31/2022 01/31/2022 8:08 PM METAL ORGAN PIPE MAKER COVID-19 Confirmed 01/31/2022 01/31/2022 8:17 PM CDT COVID-19 Rule Out 11/02/2022 11/02/2022 11/02/2022 9:58 AM CDT documented as of this encounter Care Teams Segmental Paver Installer Relationship Specialty Start Date End Date Corazon Maldonado MD [address] [place] [address] PCP - General 05/16/21 Anticoagulation Clinic [facility] Registered Nurse 10/29/16 documented as of this encounter
--- OUTSIDE RECORDS SUMMARY | 2024-08-18 09:11 | XMS_ITS | Clinical Summary ---
Author Organization [facility] er Address [address] [place] [address] Care Team Providers Care Portfolio Accountant Name Role Phone Corazon Maldonado MD Primary Care Provider [phone] Allergies Active Allergy Reactions Criticality Noted Date Comments Nitrofurantoin Dizziness Medium 11/13/2022 Fatigue and generalized weakness Medications aspirin EC 81 MG EC tablet Take 1 tablet (81 mg total) by mouth daily 08/09/19 15 Active Cranberry 400 MG capsuleIndication s:Acute cystitis without hematuria Take 400 mg by mouth 1 (one) time each day 30 capsule 3 07/07/19 23 Active gemfibrozil (LOPID) 600 MG tabletIndications :Mixed hyperlipidemia Take 1 tablet (600 mg total) by mouth 2 (two) times a day 180 tablet 3 12/31/19 24 Active losartan (COZAAR) 50 MG tabletIndications :Essential hypertension TAKE 1 TABLET ONE TIME DAILY 90 tablet 3 12/31/19 24 Active metoprolol succinate XL (TOPROL-XL) 100 MG 24 hr tabletIndications :Chronic atrial fibrillation (HCC) Take 1 tablet (100 mg total) by mouth 1 (one) time each day Do not crush or chew. 90 tablet 3 12/31/19 24 Active omeprazole (PriLOSEC) [address] capsuleIndication s:Reflux esophagitis Take 1 capsule (20 mg total) by mouth 1 (one) time each day Do not crush or chew. 90 capsule 3 12/31/19 24 Active simvastatin (ZOCOR) 20 MG tabletIndications :Mixed hyperlipidemia Take 1 tablet (20 mg total) by mouth 1 (one) time each day in the evening 90 tablet 3 12/31/19 24 Active warfarin (COUMADIN) 4 MG tabletIndications :Chronic atrial fibrillation (HCC) Take daily by mouth 6 mg every Mon, Fri; 4 mg all other days; OR as directed by Anticoagulation Clinic 103 tablet 3 01/07/20 24 Active triamcinolone (KENALOG) 0.1 % creamIndications: Eczema, unspecified type APPLY 1 APPLICATION TOPICALLY 2 (TWO) TIMES A DAY IF NEEDED FOR RASH 45 g 3 03/28/19 25 Active cyanocobalamin (VITAMIN B-12) 1000 MCG tabletIndications :Vitamin B12 deficiency TAKE 1 TABLET EVERY DAY 90 tablet 3 07/15/19 25 Active Active Problems Problem Noted Date Diagnosed Date Atrial enlargement, bilateral 07/18/2024 Overview (07/20/2024): Referral placed to cardiology. 08/09JULY 20, 20[place] [facility] [place] given severe biatrial enlargement. Patient in A-fib since at least 2016. Severe biatrial enlargement not a surprise given chronic A-fib (along with history of hypertension and increased age). Fortunately, the severe biatrial enlargement had not caused any significant valvular heart disease. Recommend continued A-fib rate control and anticoagulation. Echo showed normal EF ruling out tachycardia induced cardiomyopathy, suggesting adequate A-fib rate control Recommend echo if significant murmur auscultated. [facility] [place] needed. Intraductal papillary mucinous adenoma of pancre as 03/20/2024 Overview (07/06/2024): Followed by [facility] thought to be benign, Atypical squamous cells mariam ot exclude high grade squamous intraepithelial lesion on cytologic smear of cervix (ASC-H) 07/01/2023 Overview (07/02/2023): 06/30/23 Colposcopy: suspected nabothian cysts and atrophy, no definitive acetowhite changes. DIAGNOSIS: A)Cervix, 11:00, biopsy: - Predominantly endocervical tissue with acute and chronic inflammation and reactive changes. No definitive squamous epithelium is identified. B)Cervix, 1:00, biopsy: - Predominantly endocervical tissue with dilated endocervical glands/nabothian cyst and reactive changes. No definitive squamous epithelium is identified. C)Cervix, 5:00, biopsy: - Predominantly mucus and necroinflammatory debris with scant fragments of endocervical tissue with reactive changes. No definitive squamous epithelium is identified. D)Endocervix, endocervical curettings: - Scant endocervical tissue with reactive changes in a background of mucus and focal necroinflammatory debris. [ ] 1 year follow up Vitamin D deficiency 06/23/2023 Prediabetes 07/30/2021 Overview (12/31/2023): Lab Results Component Value Date HGBA1C 5.7 (H) 12/24/2023 Will work on diet. Assessment & Plan (06/17/2022 12:09 PM CDT): Her a1c has come down nicely, will continue to follow. Cyst of right ovary 03/18/2021 Overview (05/02/2021): 03/18/21 CT--Enlarging 2.7 cm right adnexal cystic lesion, previously 1.5 cm. Recommend dedicated pelvic ultrasonography evaluation. 05/01/21 pelvic US-- Right ovarian unilocular simple cyst measuring up to 2.5 cm. This has a high likelihood of being benign. Recommend repeat pelvic ultrasound in 12 months to confirm stability, unless otherwise clinically indicated. Multiple thyroid nodules 03/18/2021 Overview (12/31/2023): 01/08 pt prefers to defer US for now. IMPRESSION: Recommendations: Low risk, predominantly solid nodule within the right upper thyroid lobe measuring 0.6 x 0.4 x 0.6 cm. Unless there are worrisome clinical findings, recommend clinical follow-up and repeat sonographic evaluation in 2-5 years. Additional extremely low risk or no risk cystic nodules as described above for which clinical follow-up is advised. Specimen Collected: 05/01/21 13:34 Assessment & Plan (12/18/2021 10:27 AM CDT): Repeat US 05/08 Vitamin B12 deficiency 09/30/2020 Assessment & Plan (04/07/2021 10:03 AM JAVA SPRING DEVELOPER): 10/10/20 B12 level 790. Age-related nuclear cataract of both eyes 2020 Assessment & Plan (04/07/2021 9:57 AM JAVA SPRING DEVELOPER): Has to wear glasses with prisms. Assessment & Plan (09/30/2020 10:07 AM CDT): S/p bilateral cataract surgery August 2020--waiting for new glasses as she still having double vision. Gastroesophageal reflux disease without esophagi tis 08/15/2019 Overview (12/18/2021): Stable On omeprazole 20 mg daily. Assessment & Plan (04/07/2021 9:55 AM JAVA SPRING DEVELOPER): Dysphagia almost completely controlled with daily omeprazole Assessment & Plan (09/30/2020 10:05 AM CDT): Symptoms controlled with current medicine. B12 level was low--now on oral B12 supplements. Magnesium level normal. 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 Loss of hearing on right side. Assessment & Plan (04/07/2021 9:56 AM JAVA SPRING DEVELOPER): Stable AAA (abdominal aortic aneurysm) Overview (07/06/2024): Followed by [facility] 03/19/21 CT shows the aorto bi-iliac graft is widely patent with no aneurysmal dilatation and no dissection. JAK is occluded proximally with distal reconstitution. Bilateral common iliac and external iliac arteries are widely patent. Partially imaged 1 cm left thyroid nodule. Enlarged left atrium with incomplete mixing of contrast in the left atrial appendage which has been noted on the previous two CT scans. 2.7 cm right adnexal cystic lesion which was previously 1.5 cm. ASSESSMENT / PLAN #1 Abdominal Aortic Aneurysm Repair Status Post #2 Atrial Fibrillation (HCC) #3 Neuroma Acoustic (HCC) #4 Nodule Thyroid #5 Lesion Adnexal The patient's aneurysm repair looks good and can be rechecked in three years time. Assessment & Plan (06/17/2022 9:23 AM CDT): Followed at [facility]. Assessment & Plan (04/07/2021 11:37 AM JAVA SPRING DEVELOPER): 03/18/21 CT at [facility]--1. Aortobiiliac graft repair of an infrarenal abdominal aortic aneurysm without associated complications. 2. No aneurysm or significant arterial stenosis elsewhere in the chest, abdomen, or pelvis. 3. Enlarging 2.7 cm right adnexal cystic lesion, previously 1.5 cm. Recommend dedicated pelvic ultrasonography evaluation. Also noted on CT report--1.0 cm left thyroid nodule. Assessment & Plan (09/30/2020 10:04 AM CDT): Patient anticipates [facility] will schedule her next CT abdomen Angiogram for December 2020. Assessment & Plan (04/01/2020 10:13 AM JAVA SPRING DEVELOPER): Due for follow-up CT angiography. Patient will contact [facility] to schedule. Permanent atrial fibrillation Overview (06/23/2023): Stable and Controlled ON metoprolol XL 100 mg daily and warfarin. Assessment & Plan (04/07/2021 9:58 AM JAVA SPRING DEVELOPER): Stable--walks 1.5 miles four times per week and able to complete banquet cook. Assessment & Plan (09/30/2020 10:02 AM CDT): INR stable. Denies chest pain or palpitations. Can walk 1.5 miles without stopping. Assessment & Plan (04/01/2020 10:11 AM JAVA SPRING DEVELOPER): Controlled--denies palpitations or shortness of breath. Eczema Overview (12/18/2021): Stable on triamcinolone Hearing loss Essential hypertension Overview (06/23/2023): Stable and Controlled On medications. Assessment & Plan (04/07/2021 9:55 AM JAVA SPRING DEVELOPER): Controlled. Assessment & Plan (09/30/2020 12:51 PM CDT): Stable on current regimen. Assessment & Plan (08/30/2020 9:21 AM CDT): Feels off in AM and BP low down to 107/73. Stops her from exercising. Agrees to change from losartan-hydrochlorothiazide to just losartan 50 mg daily Will recheck at next appointment 10/05/20 Assessment & Plan (04/01/2020 10:08 AM JAVA SPRING DEVELOPER): Feels BP is too low--feels weak and tired. Home BP running 95/70 at times. Losartan 100 mg changed to Losartan 100 mg plus HCTZ 12.5 mg as of 02/26/20. Addition of HCTZ helped resolve mild leg swelling. Hyperlipidemia Overview (06/23/2023): Stable and controlled On simvastatin 20 mg and Lopid 600 mg BID. Assessment & Plan (09/30/2020 10:05 AM CDT): Stable. No muscle pain. Assessment & Plan (04/01/2020 10:16 AM JAVA SPRING DEVELOPER): Lipid abnormalities are improving with treatment. Pharmacotherapy as ordered. Lipids will be reassessed in 1 year. Macular degeneration Overview (06/17/2022): Followed by specialist Resolved Problems Problem Noted Date Diagnosed Date Resolved Date Serum calcium elevated 06/23/202312/30 Chronic UTI 12/25/2022 12/31/2023 Chronic renal failure, stage 3a 06/17/2022 12/31/2023 Overview (06/23/2023): Stable, following closing. Assessment & Plan (06/17/2022 12:10 PM CDT): Will continue to follow. She does not use nsaids. May be related to fasting. Next labs not fasting. Bp under good control. Peripheral edema 02/26/2020 04/07/2021 Encounters Date Type Department Care Team Description 08/04/2024 8:45 AM CDT Lab SE Lab [address] [place] [id number] Atrial fibrillation, unspecified type (HCC); Current use of exterminator anticoagulation 08/04/2024 Anticoagulation - Warfarin Visit Anticoagulation [address] [place] [address] [phone] Kellen Burgos RN Permanent atrial fibrillation (HCC) (Primary Dx); Current use of exterminator anticoagulation 07/20/2024 9:20 AM CDT Telemedicine CARDIOLOGY [address] [place] [id number] Tadeo Finn MD Permanent atrial fibrillation (HCC) (Primary Dx); Current use of exterminator anticoagulation; Atrial enlargement, bilateral 07/20/2024 Telephone [facility] [address] [place] [address] [phone] Tadeo Finn MD change apt to telephone visit 07/18/2024 7:25 AM CDT - 07/18/2024 11:59 PM CDT Hospital Encounter ECHO CARDIOLOGY [address] [place] [phone] Discharge Disposition: Home or Self Care 07/14/2024 1:07 PM CDT - 07/14/2024 11:59 PM CDT Hospital Encounter [facility] Ultrasound [address] [place] [address] Discharge Disposition: Home or Self Care 07/12/2024 Refill Family Medicine 4th Floor [address] [place] [address] [phone] Corazon Maldonado MD Vitamin B12 deficiency 07/06/2024 Results Follow-Up [facility] 4th Floor [address] [place] [address] [phone] Corazon Maldonado MD Atrial enlargement, bilateral (Primary Dx) 07/05/2024 2:15 PM CDT Lab SE Lab [address] [place] [phone] Pericardial effusion; Essential hypertension; Serum potassium elevated 07/05/2024 1:40 PM CDT Office Visit [facility] 4th Floor [address] [place] [address] [phone] Corazon Maldonado MD Atrial fibrillation, unspecified type (HCC) (Primary Dx); Essential hypertension; Mixed hyperlipidemia; Current use of custodial anticoagulation; Multiple thyroid nodules; Abdominal aortic aneurysm (AAA) without rupture, unspecified part; Prediabetes; Vitamin B12 deficiency; Gastroesophageal reflux disease without esophagitis; Pericardial effusion; Serum potassium elevated 06/23/2024 8:15 AM CDT Lab SE Lab [address] [place] [phone] Atrial fibrillation, unspecified type (HCC); Current use of custodial anticoagulation 06/23/2024 Anticoagulation - Warfarin Visit Anticoagulation [address] [place] [address]649 Kellen Burgos RN Atrial fibrillation, unspecified type (HCC) (Primary Dx); Current use of custodial anticoagulation 06/09/2024 8:15 AM CDT Lab SE Lab [address] [place] [address] Atrial fibrillation, unspecified type (HCC); Current use of custodial anticoagulation; Prediabetes; Reflux esophagitis; Essential hypertension 06/09/2024 Anticoagulation - Warfarin Visit Anticoagulation [address] [place] [address] [phone] Luana Mcfadden RN Atrial fibrillation, unspecified type (HCC) (Primary Dx); Current use of exterminator anticoagulation 06/05/2024 Telephone [facility] Ophthalmology [address] [place] [address] [phone] Silvio Brennan, OD from Last 3 Months Immunizations Immunization Administration Dates Next Due COVID-19, mRNA, LNP-S, PF, 3 0mcg/0.3mL dose Pfizer 05/08/2020,04/17/2020 Flu Vaccine High Dose 65yrs and Older IM 12/25/2022,12/18/2021,01/23/2021,11/29,12/20/2018,12/09/2017,11/15/2014 Influenza 6mo-64yrs Quad Pre servative Free IM 12/16/2013 Influenza, High-Dose, Trival ent, PF, 65 yrs and Older 12/31/2023 Influenza, Split Virus, Triv alent, Preservative 11/27/2013,01/09/2013,12/08/2011,11/10,11/16/2009,12/22/2006 Influenza, Trivalent, PF 12/18/2014,11/08/2008 Influenza, Unspecified 11/15/2014 Pneumococcal Conjugate 13-Valent 08/20/2016,05/16 Pneumococcal Polysaccharide 12/22/2006 Td 03/22/2003 Tdap 03/16/2014 Zoster Recombinant 06/22/2023,04/22/2023 Family History Medical History Relation Comments JANET disease Brother Hypertension Brother Prostate cancer Brother Asthma Daughter Heart disease Daughter 2 daughters Hypertension Daughter Aneurysm Father Heart disease Father Hyperlipidemia Father Hypertension Father Lung cancer Father Cancer Maternal Grandfather Diabetes Maternal Grandfather Depression Maternal Grandmother Arthritis Mother Cataracts Mother Diabetes Mother Gallbladder disease Mother Hyperlipidemia Mother Hypertension Mother Diabetes Paternal Grandfather Tuberculosis Paternal Grandfather Cancer Paternal Grandmother Arthritis Sister Cataracts Sister Depression Sister Gallbladder disease Sister Hyperlipidemia Sister Hypertension Sister Lung cancer Sister Skin cancer Sister Uterine cancer Sister Relation Status Comments Brother Daughter Father Maternal Grandfather Maternal Grandmother Mother Paternal Grandfather Paternal Grandmother Sister Social History Tobacco Use Types Packs/Day Years Used Date Smoking Tobacco: Former Cigarettes 1 - 1982 Passive Smoke Exposure: Past Smokeless Tobacco: Never Tobacco Cessation:Counseling Given: Not Answered Alcohol Use Standard Drinks/Week Comments Not Currently 0 (1 standard drink = 0.6 oz pur e alcohol) B1300 Health Literacy Answer Date Recor ded How often do you need to hav e someone help you when you read instructions, pamphlets, or other written material from your doctor or pharmacy? Never 12/31/2023 [facility] Utilities Answer Date Recorded In the past 12 months has th e [employer], [employer], oil, or water [email or web address] threatened to shut off services in your [...] How often do you attend chur or mormon services? More than 4 times per year 12/31/2023 Do you belong to any clubs o r organizations such as faith groups, unions, fraternal or athletic groups, or [...] Date Recorded PHQ-9 Total Score 0 07/05/2024 [facility] - Occupational Stress Questionnaire Answer Date Recorded [...] in a snf (including now)? No 12/25/2022 Housing Stability Vital Sign Answer Andrzej e Recorded In the last 12 months, was t here a time when you were not able to pay the mortgage or rent on time? No 12/31/2023 In the past 12 months, how m any times have you moved where you were living? 0 12/31/2023 At any time in the past 12 m [facility], were you homeless or living in a snf (including now)? No 12/31/2023 Interpersonal Safety Questionnaire [...] file Not on file Not on file Last Filed Vital Signs Vital Sign Reading Time Taken Comments Blood Pressure 133/66 07/05/2024 1:23 PM CDT Pulse 69 07/05/2024 1:23 PM CDT Temperature 36.6 C (97.9 F) 07/05/2024 1:23 PM CDT Respiratory Rate 14 07/05/2024 1:23 PM CDT Oxygen Saturation 96% 07/05/2024 1:23 PM CDT Inhaled Oxygen Concentration - - Weight 72.8 kg (160 lb 6.4 oz) 07/05/2024 1:23 P M CDT Height 170.6 cm (5' 7.17 ) 07/05/2024 1:23 PM CD T Body Mass Index 25 07/05/2024 1:23 PM CDT Plan of Treatment Upcoming Encounters Date Type Department Care Team (Late st Contact Info) Description 01/05/2025 8:20 AM JAVA SPRING DEVELOPER Office Visit Family Medicine 4th Floor [address] [place] [address] [phone] Corazon Maldonado MD [address] [place] [address] [phone] Health Maintenance Due Date Last Done Comments DTaP,Tdap,and Td Vaccines (2 - Td or Tdap) 03/16/2024 03/16/2014, 03/22/2003 Influenza Vaccine (#1) 2024 , 12/25/2022, 12/18/2021, Additional history exists COVID-19 Vaccine ( season) 2024 05/08/2020, 04/17/2020 Postponed from 10/17/2023 (Patient Preference) Fall Risk Performed 12/30/2024 12/31/2023, 8 Medicare Annual Wellness Visit (AWV) 12/30/2024 12/31/2023 Bone Density Scan 10/24/2025 10/24/2020 Pneumococcal Vaccine: 50+ Years Completed 08/20/2016, 05/27/2015, 12/22/2006 Mammogram Discontinued 08/22/2018, 05/2017, 06/22/2016, Additional history exists Zoster Vaccines Completed 06/22/2023, 04/22/2023 HPV Vaccines Aged Out No longer eligi ble based on patient's age to complete this topic Medical Devices Implanted Type Area Executive Chef Assistant Device Identifier Shelf Expiration Date Model / Serial / Lot 1-Piece Iol With Tecnis - [id number] - [id number] - [id number] Implanted:Qty: 1 on 09/04/2020 by Laurie Simms MD at [facility] Right: Eye 07/13/2023 [id number] / [id number] / 1-Piece Iol With Tecnis - [id number] - [id number] - [id number] Implanted:Qty: 1 on 09/18/2020 by Laurie Simms MD at [facility] Left: Eye 05/20/2022 [id number] / [id number] / Procedures Procedure Name Priority Date/Time Associated Diagnosis Comments PROTIME-INR Routine 08/04/2024 8:52 AM CDT Atrial fibrillation, unspecified type (HCC) Current use of custodial anticoagulation ECHOCARDIOGRAM 2D COMPLETE WITH SPEC AND COLOR FORM DOPPLER WITHOUT CONTRAST Routine 07/18/2024 8:07 AM CDT Pericardial effusion US HEAD NECK SOFT TISSUE Routine 07/14/2024 1:34 PM CDT Multiple thyroid nodules ESTIMATED GLOMERULAR FILTRATION RATE (EGFR) Routine 07/05/2024 2:22 PM CDT Essential hypertension Serum potassium elevated BASIC METABOLIC PANEL Routine 07/05/2024 2:22 PM CDT Essential hypertension Serum potassium elevated C-REACTIVE PROTEIN Routine 07/05/2024 2: 22 PM CDT Pericardial effusion SEDIMENTATION RATE, AUTOMATED Routine 07/05/2024 2:22 PM CDT Pericardial effusion PROTIME-INR Routine 06/23/2024 8:23 AM CDT Atrial fibrillation, unspecified type (HCC) Current use of exterminator anticoagulation ESTIMATED GLOMERULAR FILTRATION RATE (EGFR) Routine 06/09/2024 8:28 AM CDT Essential hypertension BASIC METABOLIC PANEL Routine 06/09/2024 8:28 AM CDT Essential hypertension CBC Routine 06/09/2024 8:28 AM CDT Reflux esophagitis HEMOGLOBIN A1C Routine 06/09/2024 8:28 AM CDT Prediabetes PROTIME-INR Routine 06/09/2024 8:28 AM CDT Atrial fibrillation, unspecified type (HCC) Current use of custodial anticoagulation PROTIME-INR Routine 06/05/2024 DEXA BONE DENSITY Routine 10/24/2020 9:3 0 AM CDT Screening for osteoporosis MAMMOGRAM BREAST SCREENING TOMOSYNTHESIS BILATERAL Routine 08/22/2018 8:03 AM CDT from Last 3 Months or Most Recently Relevant to Health Maintenance Results * (ABNORMAL) Protime-INR (08/04/2024 8:52 AM CDT) Only the most recent of4 resultswithin the time period is included. Protime 31.1(H) 9.4 - 12.5 seconds 08/04/2024 9:58 AM CDT [facility] INR 2.7 08/04/2024 9:58 AM CDT [facility] Comment: Suggested INR Therapeutic Ranges* Intensity Standard Higher 2.0-3.0 2.5-3.5 *Target INR should be individualized. Occasionally,INR range 3.0-4.5 may be appropriate. Higher intensity INR: Mechanical heart valve, etc. Blood (Blood, Venous) 08/04/2024 8:52 AM CDT 08/04/2024 9:42 AM CDT us Israel Salas DNP, ROOM ATTENDANT, DIRECTOR INDUSTRIAL LAB BLOOD ORDE MAYCOL Final Result [facility] [address] [place], [place] [id number] * Echocardiogram 2D Complete With Spec and Color Form Doppler Without Contrast (07/18/2024 8:07 AM CDT) Anatomical Region Laterality Modality Heart Ultrasound 07/18/2024 7:38 AM CDT Corazon Maldonado MD CV ECHO PROCEDURES Final Result * Ultrasound Head Neck Soft Tissue (07/14/2024 1:34 PM CDT) Anatomical Region Laterality Modality Head and Neck, Neck, Head, Submandibular gland Ultrasound Impressions 07/14/2024 3:35 PM CDT Benign spongiform nodules bilaterally, not significantly changed from previous exam (TI-RADS 1). Recommendations: Ti-RADS 1: Benign. No FNA. Narrative 07/14/2024 3:35 PM CDT INDICATION: follow up thyroid nodules. COMPARISON: 05/01/2021 TECHNIQUE: Ultrasound examination of the thyroid and adjacent soft tissues was performed. FINDINGS: Right thyroid gland: 5.3 x 1.4 x 1.8 cm. Left thyroid gland: 4.6 x 1.31.4 cm. Isthmus: 0.1 cm. Texture: Homogeneous Benign spongiform nodules bilaterally, not significantly changed from previous exam (TI-RADS 1). No abnormal appearing cervical lymph nodes. Procedure Note Jose Elias Lau MD - 07/14/2024 INDICATION: follow up thyroid nodules. COMPARISON: 05/01/2021 TECHNIQUE: Ultrasound examination of the thyroid and adjacent soft tissues wasperformed. FINDINGS: Right thyroid gland: 5.3 x 1.4 x 1.8 cm. Left thyroid gland: 4.6 x 1.31.4 cm. Isthmus: 0.1 cm. Texture: Homogeneous Benign spongiform nodules bilaterally, not significantly changed fromprevious exam (TI-RADS 1). No abnormal appearing cervical lymph nodes. IMPRESSION: Benign spongiform nodules bilaterally, not significantly changed fromprevious exam (TI-RADS 1). Recommendations: Ti-RADS 1: Benign. No FNA. Corazon Maldonado MD IMG US PROCEDURES Final Result * Estimated Glomerular Filtration Rate (eGFR) (07/05/2024 2:22 PM CDT) Only the most recent of2 resultswithin the time period is included. Estimated Glomerular Filtration Rate (eGFR) >60 07/05/2024 4:55 PM CDT [facility] Comment: GFR calculated from serum creatinine value Chronic Kidney Disease less than 60 mL/min/1.73 m2 Kidney Failure less than 15 mL/min/1.73 m2 Note: effective 02/11/2022: 2020 CKD-EPI Equation used 07/05/2024 2:22 PM CDT 07/05/2024 2:22 PM CDT Corazon Maldonado MD LAB BLOOD ORDERABLES Final Resul t [facility] [address] [place] [address] * ESR-Sed rate (07/05/2024 2:22 PM CDT) Pathologist [facility] Sed Rate 5 0 - 29 mm/hr 07/05/2024 4:39 PM CDT [facility] Blood (Blood, Venous) 07/05/2024 2:22 PM CDT 07/05/2024 4:08 PM CDT us Corazon Maldonado MD LAB BLOOD ORDERABLES Final Resul t Performing Organization Address City/[facility]/ZIP Co de Phone Number [facility] [address] [place] [phone] * C-reactive protein (07/05/2024 2:22 PM CDT) [facility] CRP 0.6 0.0 - 4.9 mg/L 07/05/2024 5:01 PM CDT [facility] Blood (Blood, Venous) 07/05/2024 2:22 PM CDT 07/05/2024 4:35 PM CDT us Corazon Maldonado MD LAB BLOOD ORDERABLES Final Resul t Performing Organization Address [facility] Co de Phone Number [facility] [address] [place] [id number] * (ABNORMAL) Basic metabolic panel (07/05/2024 2:22 PM CDT) Only the most recent of2 resultswithin the time period is included. Pathologist [facility] Sodium 139 135 - 145 mEq/L 07/05/2024 4:55 PM CDT [facility] Potassium 5.2(H) 3.5 - 5.1 mEq/L 07/05/2024 4:55 PM CDT [facility] Chloride 107 98 - 107 mEq/L 07/05/2024 4:55 PM CDT [facility] CO2 26 22 - 29 mmol/L 07/05/2024 4:55 PM CDT [facility] Creatinine 0.82 0.40 - 1.20 mg/dL 07/05/2024 4:55 PM CDT [facility] BUN 19 5 - 25 mg/dL 07/05/2024 4:55 PM T [facility] Glucose 94 70 - 100 mg/dL 07/05/2024 4:55 PM T [facility] Calcium, Total,S 10.1 8.4 - 10.2 mg/dL 07/05/2024 4:55 PM T [facility] Anion Gap 6 4 - 13 07/05/2024 4:55 PM T [facility] Comment: The anion gap is calculated with the following formula: AGAP = Na ? (Cl + CO2). Fasting? No 07/05/2024 2:22 PM T [facility] Blood (Blood, Venous) 07/05/2024 2:22 PM CDT 07/05/2024 4:35 PM CDT us Corazon Maldonado MD LAB BLOOD ORDERABLES Final Resul t [facility] [address] [place] [id number] * (ABNORMAL) CBC ([facility]) (06/09/2024 8:28 AM CDT) WBC 4.6 3.5 - 10.5 K/uL 06/09/2024 1:56 PM [facility] RBC 5.26(H) 3.90 - 5.00 M/uL 06/09/2024 1:56 PM [facility] Hemoglobin 14.4 12.0 - 15.5 g/dL 06/09/2024 1:56 PM [facility] Hematocrit 44.8(H) 35.0 - 44.0 % 06/09/2024 1:56 PM [facility] Platelets 205 150 - 450 K/uL 06/09/2024 1:56 PM [facility] MCV 85.2 81.6 - 98.3 fL 06/09/2024 1:56 PM [facility] MCH 27.4 26.0 - 32.0 pg 06/09/2024 1:56 PM [facility] MCHC 32.1 32.0 - 36.0 g/dL 06/09/2024 1:56 PM CDT [facility] RDW 14.5 11.9 - 15.5 % 06/09/2024 1:56 PM CDT [facility] NRBC %, Automated 0 % 06/09/2024 1:56 PM CDT [facility] NRBC Absolute, Autmated 0.00 K/uL 06/09/2024 1:56 PM CDT [facility] Comment: 0-4 Days: 0.01 -0.02 >=5 Days: 0.00 Blood (Blood, Venous) 06/09/2024 8:28 AM CDT 06/09/2024 9:58 AM CDT us Corazon Maldonado MD LAB BLOOD ORDERABLES Final Resul t Performing Organization Address [facility] de Phone Number [facility] [address] [place], [place] [address] * Hemoglobin A1c (06/09/2024 8:28 AM CDT) Hemoglobin A1C 5.6 4.0 - 5.6 % A1C 06/09/2024 11:25 AM CDT [facility] Comment: Reference Range 4.0-5.6% is for non- adults >=18 yrs <5.6% Non-Diabetic 5.7-6.4% Increased risk of Diabetes >=6.5% Indicative of Diabetes <7.0% ADA goal for glycemic control Methodology may not detect all hemoglobin variants which can affect A1c results. Method certified by National Glycohemoglobin Standardization Program. Blood 06/09/2024 8:28 AM CDT 06/09/2024 9:58 AM CDT us Corazon Maldonado MD LAB BLOOD ORDERABLES Final Resul t [facility] [address] [place] [phone] * Dexa bone density axial skeleton (10/24/2020 9:30 AM CDT) Anatomical Region Laterality Modality Wrist, Hip, L-spine Radiographic Imaging 10/24/2020 9:30 AM CDT Impressions 10/24/2020 10:32 AM CDT IMPRESSION: Osteopenia. FINDINGS: Patient: ROBYN OBREGON Birthdate: 1940, [age] Height/Weight: 66.7 in., 179.0 lbs. Gender/Ethnicity: Female, White Facility ID: (not specified) Referring Physician: Martha Mark MD Measured: 10/24/2020, 9:12:32 AM, 18 SP 3 Analyzed: 10/24/2020, 9:21:36 AM, 18 SP 3 Results: Region Measured Age BMD T-score Z-score Neck Left 10/24/2020 [age] 0.857 g/cm2 -1.3 0.4 Neck Left [birth year]/2006 [age] 1.023 g/cm2 -0.1 1.0 Neck Right 10/24/2020 [age] 0.879 g/cm2 -1.1 0.6 Neck Right 12/22/2006 66.1 1.020 g/cm2 -0.1 1.0 Total Left 10/24/2020 79.9 0.914 g/cm2 -0.7 0.8 Total Left 12/22/2006 [age] 1.069 g/cm2 0.5 1.3 Total Right 10/24/2020 [age] 0.900 g/cm2 -0.9 0.7 Total Right 12/22/2006 [age] 1.079 g/cm2 0.6 1.4 Summary Comparisons Left Neck The least significant change for the BMD for the Left Femur Neck is 0.049 g/cm2. The absolute BMD change from the prior, -0.166 g/cm2, is SIGNIFICANTLY DECREASED. Right Neck The least significant change for the BMD for the Right Femur Neck is 0.049 g/cm2. The absolute BMD change from the prior, -0.141 g/cm2, is SIGNIFICANTLY DECREASED. Left Total The least significant change for the BMD for the Left Femur Total is 0.026 g/cm2. The absolute BMD change from the prior, -0.155 g/cm2, is SIGNIFICANTLY DECREASED. Right Total The least significant change for the BMD for the Right Femur Total is 0.026 g/cm2. The absolute BMD change from the prior, -0.179 g/cm2, is SIGNIFICANTLY DECREASED. ASSESSMENT: The diagnosis in pre-menopausal women and men can be based on low bone mass or evidence of skeletal fragility in the appropriate clinical setting. World Health Organization - Definition of osteoporosis and Osteopenia for Women* Normal: T-Score at or above -1 SD Osteopenia: T-Score between -1 and -2.5 SD Osteoporosis: T-Score at or below -2.5 SD Established Osteoporosis: T-Score at or below -2.5 SD plus fragility fracture *WHO definitions only apply when a young healthy Women reference database is used to determine T- Scores. Narrative 10/24/2020 10:32 AM CDT INDICATION: Post menopause (age-related, natural) Procedure Note Cate Smith MD - 10/24/2020 INDICATION: Post menopause (age-related, natural) IMPRESSION: Osteopenia. FINDINGS: Patient: ROBYN OBREGON Birthdate: 1940, [age] Height/Weight: 66.7 in., 179.0 lbs. Gender/Ethnicity: Female, White Facility ID: (not specified) Referring Physician: Martha Mark MD Measured: 10/24/2020, 9:12:32 AM, 18 SP 3 Analyzed: 10/24/2020, 9:21:36 AM, 18 SP 3 Results: Region Measured Age BMD T-score Z-score Neck Left 10/24/2020 79.9 0.857 g/cm2 -1.3 0.4 Neck Left [birth year]22/2006 66.1 1.023 g/cm2 -0.1 1.0 Neck Right 10/24/2020 79.9 0.879 g/cm2 -1.1 0.6 Neck Right 12/22/2006 66.1 1.020 g/cm2 -0.1 1.0 Total Left 10/24/2020 79.9 0.914 g/cm2 -0.7 0.8 Total Left 12/22/2006 66.1 1.069 g/cm2 0.5 1.3 Total Right 10/24/2020 79.9 0.900 g/cm2 -0.9 0.7 Total Right 12/22/2006 66.1 1.079 g/cm2 0.6 1.4 Summary Comparisons Left Neck The least significant change for the BMD for the Left Femur Neck is 0.049 g/cm2. The absolute BMD change from the prior, -0.166 g/cm2, is SIGNIFICANTLY DECREASED. Right Neck The least significant change for the BMD for the Right Femur Neck is 0.049 g/cm2. The absolute BMD change from the prior, -0.141 g/cm2, is SIGNIFICANTLY DECREASED. Left Total The least significant change for the BMD for the Left Femur Total is 0.026 g/cm2. The absolute BMD change from the prior, -0.155 g/cm2, is SIGNIFICANTLY DECREASED. Right Total The least significant change for the BMD for the Right Femur Total is 0.026 g/cm2. The absolute BMD change from the prior, -0.179 g/cm2, is SIGNIFICANTLY DECREASED. ASSESSMENT: The diagnosis in pre-menopausal women and men can be based on low bone mass or evidence of skeletal fragility in the appropriate clinicalsetting. World Health Organization - Definition of osteoporosis and Osteopenia for Women* Normal: T-Score at or above -1 SD Osteopenia: T-Score between -1 and -2.5 SD Osteoporosis: T-Score at or below -2.5 SD Established Osteoporosis: T-Score at or below -2.5 SD plus fragility fracture *WHO definitions only apply when a young healthy Women reference database is used to determine T- Scores. us Martha Mcdowell MD IM DXA PROCEDURES Final Re sult * Mammogram breast screening tomosynthesis bilateral (08/22/2018 8:03 AM CDT) Anatomical Region Laterality Modality Breast Bilateral Mammography 08/22/2018 8:03 AM CDT Impressions 08/22/2018 11:44 AM CDT IMPRESSION: BILATERAL BREASTS Negative; no evidence of malignancy. Routine follow-up is recommended in 1 year, or at next clinically-appropriate interval. ASSESSMENT: BI-RADS 1: Final Overall Assessment: Negative ResultCode BIRADS: 1 Side: B-Bilateral Breast composition: 2-There are scattered areas of fibroglandular density Recommendation: N-Normal interval follow up in 12 months CAD REVIEW: Computer aided detection equipment was used during the interpretation of this study.- Narrative 08/22/2018 11:44 AM CDT EXAM DESCRIPTION: MAMMOGRAM BILATERAL SCREENING DIGITAL WITH BLAYNE INDICATION: 77 y/o F. Screen. RISK FACTOR: Personal: Post-menopausal patient Family: Intermediate family history of breast cancer (Sister, 73) COMPARISON: Comparison is made to images from 06/10/2015 (Bilateral) and images from 06/22/2016 (Bilateral) and images from 07/19/2017 (Bilateral) FINDINGS: Routine bilateral combination 2D/DBT screening examination including CC and MLO projections. There are scattered areas of fibroglandular density. No significant masses, calcifications or other abnormalities are seen. Procedure Note Angeline Arreola, DO - 08/22/2018 EXAM DESCRIPTION: MAMMOGRAM BILATERAL SCREENING DIGITAL WITH BLAYNE INDICATION: 77 y/o F. Screen. RISK FACTOR: Personal: Post-menopausal patient Family: Intermediate family history of breast cancer (Sister, 73) COMPARISON: Comparison is made to images from 06/10/2015 (Bilateral) and images from 06/22/2016 (Bilateral) and images from 07/19/2017 (Bilateral) FINDINGS: Routine bilateral combination 2D/DBT screening examination including CC and MLO projections. There are scattered areas of fibroglandular density. No significant masses, calcifications or other abnormalities are seen. IMPRESSION: BILATERAL BREASTS Negative; no evidence of malignancy. Routine follow-up is recommended in 1 year, or at next clinically-appropriate interval. ASSESSMENT: BI-RADS 1: Final Overall Assessment: Negative ResultCode BIRADS: 1 Side: B-Bilateral Breast composition: 2-There are scattered areas of fibroglandulardensity Recommendation: N-Normal interval follow up in 12 months CAD REVIEW: Computer aided detection equipment was used during the interpretation of this study.- us Martha Mcdowell MD IMG BI PROCEDURES Final Res ult from Last 3 Months or Most Recently Relevant to Health Maintenance Insurance MEDICARE [place] [place] [id number] [facility] SUPPLEMENTAL Advance Directives For more information, please contact: [phone] Documents on File Type Date Recorded Patient Ada Accommodation Consultant Expl anation Advance Directive 08/14/2022 11:15 AM Adva nce Directive Advance Directives and Living Will 08/14/2022 11:15 AM Care Teams Portfolio Accountant Relationship Specialty Start Date End Date Corazon Maldonado MD [address] [place] [id number] PCP - General 05/16/21 [place] [facility] [place] Nurse 10/29/16
--- OUTSIDE RECORDS SUMMARY | 2024-08-18 09:11 | XMS_ITS | Encounter Summary ---
Author Organization [facility] er Address [address] [place] [address] Care Team Providers Care Quality Control Analyst Name Role Phone Corazon Maldonado MD Primary Care Provider [phone] Encounter Details Date Type Department Care Team (Late st Contact Info) Description 07/03/2019 Telephone Internal Medicine [address] [place] [address] Martha Mark MD Social History [...] Family Three times a week 12/20/2018 Attends Hinduism Services More than 4 times per year 12/20/2018 Active Member of Clubs or Organizations No 12/20/2018 Attends Club or Organization Meetings Never 12/20/2018 Marital Status 12/20/2018 Overall Financial Resource Strain (CARDIA) Answe r Date Recorded Difficulty of Paying Living Expenses Not hard at all 12/20/2018 PHQ-2 Answer Date Recorded PHQ-2 Score 0 11/21/2018 [facility] [place] of Occupat ional Health - Occupational Stress [...] st Contact Info) Description 01/05/2025 8:20 AM CYLINDER WORKER Office Visit Family Medicine 4th Floor [address] [place] [phone] Corazon Maldonado MD [address] [place] [address] documented as of this encounter Visit Diagnoses Not on filedocumented in this encounter Additional Health Concerns Infection Onset Date Last Indicated Resolved Time COVID-19 Rule Out 01/31/2022 01/31/2022 01/31/2022 8:08 PM CYLINDER WORKER COVID-19 Confirmed 01/31/2022 01/31/2022 8:17 PM CDT COVID-19 Rule Out 11/02/2022 11/02/2022 11/02/2022 9:58 AM CDT documented as of this encounter Care Teams Quality Control Analyst Relationship Specialty Start Date End Date Corazon Maldonado MD [address] [place], [place] [id number] PCP - General 05/16/21 Anticoagulation Clinic [facility] [place] Registered Nurse 10/29/16 documented as of this encounter
--- OUTSIDE RECORDS SUMMARY | 2024-08-18 09:11 | XMS_ITS | Encounter Summary ---
Author Organization [facility] er Address [address] [place] [address] Care Team Providers Care Shoe Laster Name Role Phone Corazon Maldonado MD Primary Care Provider [phone] Reason for Visit * Reason Onset Date Comments change apt to telephone visit 07/20/2024 Encounter Details Date Type Department Care Team (Late st Contact Info) Description 07/20/2024 Telephone CARDIOLOGY [address] [place] [phone] Tadeo Finn MD [facility] [place] [address] change apt to telephone visit Social History Tobacco Use Types Packs/Day Years [...] doctor or pharmacy? Never 12/31/2023 [facility] Utilities Answer Date Recorded In the past 12 months has th e electric, gas, oil, or water company threatened to shut off services in your [...] week 12/31/2023 How often do you attend [facility] or temple services? More than 4 times per year 12/31/2023 Do you belong to any clubs o r organizations such as episcopalian groups, unions, fraternal or athletic groups, or [...] Date Recorded PHQ-9 Total Score 0 07/05/2024 [facility] [place] of Occupat ional Health - Occupational Stress [...] place to sleep or slept in a usp (including now)? No 12/25/2022 Housing Stability Vital Sign Answer Andrzej e Recorded In the last 12 months, was t here a time when you were not able to pay the mortgage or rent on time? No 12/31/2023 In the past 12 months, how m any times have you moved where you were living? 0 12/31/2023 At any time in the past 12 [facility], were you homeless or living in a usp (including now)? No 12/31/2023 Interpersonal Safety Questionnaire [...] encounter Miscellaneous Notes * Telephone Encounter - Leeann Kilgore MA - 07/20/2024 7:[address] Finn stated it was okay to change her 9:20 am visit tod documented in this encounter Plan of Treatment Upcoming Encounters Date Type Department Care Team (Late st Contact Info) Description 01/05/2025 8:20 AM ELECTRONIC PAGINATION SYSTEM OPERATOR Office Visit Family Medicine 4th Floor [address] [place] [address] [phone] Corazon Maldonado MD [address] [place] [address] documented as of this encounter Visit Diagnoses Not on filedocumented in this encounter Care Teams Shoe Laster Relationship Specialty Start Date End Date Corazon Maldonado MD [address] [place] [address] PCP - General 05/16/21 Antico[place] Clinic [facility] [place] Registered Nurse 10/29/16 documented as of this encounter
--- OUTSIDE RECORDS SUMMARY | 2024-08-18 09:11 | XMS_ITS | Encounter Summary ---
Author Organization [facility] er Address [address] [place] [address] Care Team Providers Care Fighting Vehicle Systems Maintainer Name Role Phone Corazon Maldonado MD Primary Care Provider [phone] Reason for Visit * Reason Onset Date Comments Med Refill 11/24/2021 Encounter Details Date Type Department Care Team (Late st Contact Info) Description 11/24/2021 Refill Family Medicine 4th Floor [address] [place] [id number] Corazon Maldonado MD [address] [place] [address] Rash (Primary Dx) Social History Tobacco Use Types Packs/Day Years Used Date Smoking Tobacco: Former Cigarettes 3 1982 Smokeless Tobacco: Never Alcohol Use Standard Drinks/Week Comments Not Currently 0 (1 standard drink = 0.6 oz pur e alcohol) Humiliation, Afraid, Rape, and Kick questionnair e Answer Date Recorded Within the last year, have y ou been afraid of your partner or ex-partner? No 04/07/2021 Within the last year, have y ou been humiliated or emotionally abused in other ways by your partner or ex-partner? No Within the last year, have y ou been kicked, hit, slapped, or otherwise physically hurt by your partner or ex-partner? No 04/07/2021 Within the last year, have y ou been raped or forced to have any kind of sexual activity by your partner or ex-partner? No 04/07/2021 Social Connection and Isolat ion Panel [NHANES] Answer Date Recorded In a typical week, how many times do you talk on the phone with family, friends, or neighbors? More than three times a week 04/07/2021 How often do you get togethe r with friends or relatives? Three times a week 04/07/2021 How often do you attend chur or latter day services? More than 4 times per year 04/07/2021 Do you belong to any clubs o r organizations such as yarsanism groups, unions, fraternal or athletic groups, or school groups? No 04/07/2021 How often do you attend meet ings of the clubs or organizations you belong to? Never 04/07/2021 Are you , , di vorced, , never , or living with a partner? 04/07/2021 AUDIT-C Answer Date Recorded Q1: How often do you have a drink containing alc ohol? Never 04/07/2021 Average Number of Drinks Not on file 022 Q3: How often do you have si x or more drinks on one occasion? Never 04/07/2021 Overall Financial Resource Strain (CARDIA) Answe r Date Recorded How hard is it for you to pa y for the very basics like food, housing, medical care, and heating? Not hard at all 04/07/2021 PHQ-2 Answer Date Recorded PHQ-9 Total Score 0 07/22/2021 [facility] of Occupat ional Health - Occupational Stress Questionnaire Answer Date Recorded Do you feel stress - tense, restless, nervous, or anxious, or unable to sleep at night because your mind is troubled all the time - these days? Not at all 04/07/2021 Exercise Vital Sign Answer Date Recorde d On average, how many days pe r week do you engage in moderate to strenuous exercise (like a brisk walk)? 4 days 04/07/2021 On average, how many minutes do you engage in exercise at this level? 30 min 04/07/2021 Hunger Vital Sign Answer Date Recorded Within the past 12 months, y ou worried that your food would run out before you got the money to buy more. Never true 04/07/19 22 Within the past 12 months, t he food you bought just didn't last and you didn't have money to get more. Never true 04/07/2021 PRAPARE - Transportation Answer Date Re corded In the past 12 months, has l ack of transportation kept you from medical appointments or from getting medications? No 03/19 In the past 12 months, has l ack of transportation kept you from meetings, work, or from getting things needed for daily living? No 04/07/2021 Housing Stability Vital Sign Answer Andrzej e Recorded In the last 12 months, was t here a time when you were not able to pay the mortgage or rent on time? No 04/07/2021 In the last 12 months, how many places have you lived? 1 04/07/2021 In the last 12 months, was t here a time when you did not have a steady place to sleep or slept in a senior living (including now)? No 04/07/2021 Education Answer Date Recorded What is the [...] encounter Miscellaneous Notes * Telephone Encounter - Corazon Maldonado MD - 11/25/2021 8:30 AM CDT Pt needs 40 minute establish appt. * Telephone Encounter - Teagan Vidal LPN - 11/24/2021 3:13 PM CDT Last visit in provider department: 07/22/2021 Last visit requested medication was discussed: not found in the last year Last Rx: 05/02/16 Requested Prescriptions Pending Prescriptions Disp Refills ??? triamcinolone (KENALOG) 0.1 % cream 30 g Sig: Apply 1 application topically if needed Labs: Vitals: BP Readings from Last 2 Encounters: 07/22/21 134/78 04/07/21 112/88 Upcoming appointment with provider: Visit date not found documented in this encounter Plan of Treatment Upcoming Encounters Date Type Department Care Team (Late st Contact Info) Description 01/05/2025 8:20 AM SHOP LABORER Office Visit Family Medicine 4th Floor [address] [place] [phone] Corazon Maldonado MD [address] [place] [address] documented as of this encounter Visit Diagnoses Diagnosis Rash- Primary Rash and other nonspecific skin eruption documented in this encounter Additional Health Concerns Infection Onset Date Last Indicated Resolved Time COVID-19 Rule Out 01/31/2022 01/31/2022 01/31/2022 8:08 PM SHOP LABORER COVID-19 Confirmed 01/31/2022 01/31/2022 8:17 PM CDT COVID-19 Rule Out 11/02/2022 11/02/2022 11/02/2022 9:58 AM CDT documented as of this encounter Care Teams Fighting Vehicle Systems Maintainer Relationship Specialty Start Date End Date Corazon Maldonado MD [address] [place] [address] PCP - General 05/16/[address] [facility] [place] Registered Nurse 10/29/16 documented as of this encounter
--- OUTSIDE RECORDS SUMMARY | 2024-08-18 09:11 | XMS_ITS | Encounter Summary ---
Author Organization [facility] er Address [address] [place] [address] Care Team Providers Care Linen Keeper Name Role Phone Corazon Maldonado MD Primary Care Provider [phone] Reason for Visit * Reason Comments Med Refill Encounter Details Date Type Department Care Team (Late st Contact Info) Description 02/07/2020 Refill [facility] Anticoag [address] [place] [address] Martha Mark MD Chronic atrial fibrillation (HCC) Social History Tobacco Use Types Packs/Day Years Used Date Smoking Tobacco: Former Cigarettes 1 963 - 1982 Smokeless Tobacco: Never Alcohol Use Standard [...] Family Three times a week 12/20/2018 Attends [employer] Services More than 4 times per year 12/20/2018 Active Member of Clubs or Organizations No 12/20/2018 Attends Club or Organization Meetings Never 12/20/2018 Marital Status 12/20/2018 Overall Financial Resource Strain (CARDIA) Answe r Date Recorded Difficulty of Paying Living Expenses Not hard at all 12/20/2018 PHQ-2 Answer Date Recorded PHQ-2 Score 0 11/21/2018 [facility] [place] of Occupat ional Health - Occupational Stress [...] 12/20/2018 Lack of Transportation (Non-Medical) No 12/20/2018 Education Answer Date Recorded What is the [...] Telephone Encounter - Zayra Londono MA - 02/10/2020 3:08 PM [employer]EL D[employer]ING [employer] C[employer]IER Last visit in provider department: 12/29/2019 Last visit requested medication was discussed: 12/29/2019 Upcoming appointment with provider: 04/01/2019Visit date not found Last Rx: #75 +4 refills 05/05/2019 Requested Prescriptions Pending Prescriptions Disp Refills ??? warfarin (COUMADIN) 4 MG tablet [Pharmacy Med Name: WARFARIN SODIUM 4 MG Tablet] 75 tablet 3 Sig: TAKE 1/2 TABLET ON WEDNESDAY, WEDNESDAY AND WEDNESDAY AND TAKE 1 TABLET ALL OTHER DAYS OR DIRECTED BY ANTICOAGULATION CLINIC Labs: Component Latest Ref Rng & Units 01/29/2020 Protime 10.6 - 12.9 seconds 26.5 (H) INR 2.3 Vitals: BP Readings from Last 2 Encounters: 12/29/19 (!) 144/94 12/29/19 (!) 144/94 L DINING ROOM CASHIER documented in this encounter Plan of Treatment Upcoming Encounters Date Type Department Care Team (Late st Contact Info) Description 01/05/2025 8:20 AM H[employer] DINING [employer] C[employer]IER Office Visit Family Medicine 4th Floor [address] [place] [id number] Corazon Maldonado MD [address] [place] [address] documented as of this encounter Visit Diagnoses Diagnosis Chronic atrial fibrillation (HCC) Atrial fibrillation documented in this encounter Additional Health Concerns Infection Onset Date Last Indicated Resolved Time COVID-19 Rule Out 01/31/2022 01/31/2022 01/31/2022 8:08 PM H[employer]EL D[employer]ING RO[employer] C[employer]IER COVID-19 Confirmed 01/31/2022 01/31/2022 8:17 PM CDT COVID-19 Rule Out 11/02/2022 11/02/2022 11/02/2022 9:58 AM CDT documented as of this encounter Care Teams Linen Keeper Relationship Specialty Start Date End Date Corazon Maldonado MD [address] [place] [id number] PCP - General 05/16/21 [place] [facility] [place] 10/29/16 documented as of this encounter
--- NOTE | 2024-08-18 09:38 | W.ED.BACK ---
HPI - Back Pain/Injury General: Chief Complaint: Back Pain/Injury Stated Complaint: midback pain Time Seen by Provider: 08/18/24 09:02 History of Present Illness: 83-year-old female presents emergency room complaining of mid back pain. She just taken a long drive from [place] to this area to bed sitting quite a bit she is complaining of increased back pain she has had problems with back pain in the past did not have any fall or direct trauma. Denies any dysuria urgency frequency shortness of breath no chest pain Associated symptoms: Deny abdominal pain, chills, dysuria, fever(s) or urinary urgency Related Data Previous Rx's ?Medication ?Instructions ?Recorded diclofenac sodium 75 mg 75 mg PO Q12H PRN pain #20 tabs 08/18/24 tablet,delayed release methylprednisolone 4 mg tablets in See Rx Instructions PO .COMPLEX 08/18/24 a dose pack (Medrol (Souleymane)) #21 ea tizanidine 4 mg tablet 4 mg PO Q6H PRN muscle spasticity 08/18/24 #20 tabs Allergies Allergy/AdvReac Type Severity Reaction Status Date / Time ANTIBIOTIC Allergy Unknown Uncoded 08/18/24 09:11 Review of Systems Const: Denies: fever(s) or chills Card: Denies: chest pain Resp: Denies: dyspnea GI: Denies: abdominal pain : Denies: dysuria, urinary frequency or urinary urgency Musc: Denies: neck pain or back pain Skin/Breast: Denies: rash Physical Exam Const: COMMON NORMALS: no acute distress GENERAL APPEARANCE: cooperative and comfortable ORIENTATION/CONSCIOUSNESS: Yes awake, Yes oriented to person, Yes oriented to place and Yes oriented to time HENMT: COMMON NORMALS: normocephalic, atraumatic and hearing grossly normal bilaterally HEAD & SCALP: normocephalic and atraumatic Resp: COMMON NORMALS: normal respiratory effort, No retractions, No use of accessory muscles and clear to auscultation bilaterally AUSCULTATION: clear to auscultation bilaterally Cardio: COMMON NORMALS: regular rate, regular rhythm and No murmurs present (Cardio) RATE: regular rate RHYTHM: regular rhythm GI: COMMON NORMALS: Soft to palpation and No hepatosplenomegaly present AUSCULTATION: Yes normoactive bowel sounds PALPATION: Yes Soft to palpation, No Tenderness to palpation present (GI), No Guarding due to palpation present (GI) and Yes No hepatosplenomegaly present Back/Pelvis: OTHER: No reproducible pain with palpation along the lumbar or thoracic spine Extremity: COMMON NORMALS: normal to inspection, capillary refill normal, no clubbing, cyanosis or edema, no calf tenderness and no pedal edema Neuro: SENSORIUM/ORIENTATION: Yes oriented to person, Yes oriented to place and Yes oriented to time Skin: COMMON NORMALS: no rashes or lesions noted GENERAL SKIN EXAM: no rashes or lesions noted Course Vital Signs: Vital signs: Vital Signs Temperature 97.8 F 08/18/24 09:06 Pulse Rate 76 08/18/24 10:44 Respiratory Rate 17 08/18/24 10:40 Blood Pressure 160/86 08/18/24 10:44 Pulse Oximetry 98 08/18/24 10:44 Oxygen Delivery Me thod Room Air 08/18/24 09:06 MDM - Back Pain/Injury Medical Decision Making No trauma or precipitating event. She has had similar episodes in the past. She does not report her pain being exacerbated by any activity such as bending over or sudden popping sensation. Pain is improved with medications given. If pain persist you may need to be reevaluated for possibility of vertebral compression fracture or other does not clinically appear to be present at this time discharged home with tizanidine Medrol Dosepak diclofenac to use as needed return if she has further problems. No red flag symptoms noted at this time patient seen reviewed with patient. Medical Records I reviewed the patient's medical records. Labs I reviewed the patient's lab results. Laboratory Results Urine Color Yellow (Yellow) 08/18/24 09:40 Urine Appearance Clear (CLEAR) 08/18/24 09:40 Urine pH 5.5 (5-7) 08/18/24 09:40 Ur Specific [place] 1.013 (1.005-1.030) 08/18/24 09:40 Urine Protein Negative (Negative) 08/18/24 09:40 Urine Glucose (UA) Negative (Normal) 08/18/24 09:40 Urine Ketones Negative (Negative) 08/18/24 09:40 Urine Blood Negative (Negative) 08/18/24 09:40 Urine Nitrate Negative (Negative) 08/18/24 09:40 Urine Bilirubin Negative (Negative) 08/18/24 09:40 Urine Urobilinogen 1.0 mg/dL (Negative) 08/18/24 09:40 Ur Leukocyte Esterase Trace (Negative) A 08/18/24 09:40 Urine RBC 0-2 /hpf (0-2) 08/18/24 09:40 Urine WBC 0-5 /hpf (0-5) 08/18/24 09:40 Ur Squamous Epith Cells 0-5 /hpf (0-5) 08/18/24 09:40 Amorphous Sediment Not Reportable 08/18/24 09:40 Urine Bacteria None seen /hpf (NONE) 08/18/24 09:40 Hyaline Casts 0-4 /lpf H 08/18/24 09:40 No radiology studies performed this visit Discharge Plan Discharge Patient Disposition: Home Clinical Impression: Strain of lumbar region Condition: Stable Prescriptions: New tizanidine 4 mg tablet 4 mg PO Q6H PRN (Reason: muscle spasticity) Qty: 20 0RF Rx Instructions: do not exceed 3 doses per 24 hrs diclofenac sodium 75 mg tablet,delayed release (DR/EC) 75 mg PO Q12H PRN (Reason: pain) Qty: 20 0RF methylprednisolone [Medrol (Souleymane)] 4 mg tablets,dose pack See Rx Instructions .ROUTE .COMPLEX Qty: 21 0RF Rx Instructions: orally per package directions Discharge Orders: Discharge ED (Routine); Ordered 08/18/24 Ordered By: Geovany Villagran Discharge Diet: Usual diet Discharge Activity: Increase activity as tolerated Patient Instructions: Acute Low Back Pain (ED), Lower Back Exercises (ED), Opioid Safety, Pain Management, Patient Portal & Елена Instructions Activity Restrictions/Additional Instructions: Thank you for choosing [facility] for your healthcare needs today. It is very important that you follow up as instructed or that you return to the Emergency Department should you have concerns or if your condition changes or worsens in any way. Print Language: [place] Coding Level of Care Code ED Laser Technician for Abram Escalona
[2024-08-18] MEDS: methylPREDNISolone sod succ 125 mg/2 mL INJ IVP (09:45)
[2024-08-18] MEDS: orphenadrine 30 mg/mL Inj 2 mL 60 MG IV (09:45)
[2024-08-18 09:58] LABS: Glucose Urine UA Negative (Normal); Nitrate Urine Negative (Negative); Specific Gravity, Urine 1.013 (1.005-1.030)
[2024-08-18 10:03] LABS: Add Urine Microscopic? YES
[2024-08-18 10:40] VITALS: RESP 17; O2SAT 97
[2024-08-18] MEDS: morphine 4 mg/mL SDV 1 mL IVP (10:40)
[2024-08-18 10:44] VITALS: BP 160/86; PULSE 76; O2SAT 98
== END 2024-08-18 10:52 | disposition home or self-care (01) ==
PROVIDERS: Emergency Provider Family Medicine
DX: S39.012A Strain of muscle, fascia and tendon of lower back, initial encounter (principal); X58.XXXA Exposure to other specified factors, initial encounter
CPT/HCPCS: 81001; 96374; 96375; 99284; J1885; J2270; J2360; J2919